=== PATIENT | male | born 1950 | race Caucasian/White ===

== ENCOUNTER → 2017-03-21 | Outpatient (CLI) | payer OTHER, BC ==
[2015-07-21 12:52] VITALS: BP 109/72
[~2017-03-21] MED LIST: ALPR0.5T PO; ASPI-482 PO; ASPI-612 PO; CIPR500T PO; FAMO-63 PO; FAMO40TA4 PO; FENT1PAT93 TP; GABA600T PO; IBUP1TAB84 PO; LAMO100T5 PO; LEVO750T31 PO; LIDO700A4 TP; LITH450T16 PO; LOVA40TA2 PO; MELO15TA23 PO; MEVACOR; MIRA25TA PO; MIRA50TA PO; MOME15CR13 TP; MORP30TA PO; MORP60TA PO; NITR0.4T SL; NORT25CA PO; OLAN20TA3 PO; OMEP40CA5 PO; OXYC-328 PO; OXYC1TAB9 PO; PHEN10TA32 PO; POTA20TA12 PO; PRED1DRO EACHEYE; SERT100T PO; SERT50TA PO; TAMS0.4C2 PO; TIZA4CAP3 PO; TIZA4TAB PO; ZOLP5TAB PO
--- NOTE | 2017-03-21 15:28 | RAD ---
EXAM: CT cervical spine without contrast. HISTORY: Neck pain after cervical fusion. TECHNIQUE: Computed tomography of the cervical spine was performed without intravenous contrast. COMPARISON: None. FINDINGS: There are changes of estimated posterior fusion from C5 through C7. On the right, pedicle screws are fixed by a vertical kaya at each level. The C5 screw appears to extend beyond the inferior cortex of the lateral mass and may also engage the superior aspect of the C6 lateral mass. There is mild periprosthetic lucency about the screw. The C6 and C7 screws are along the inferior aspects of the C6 and C7 lateral masses. On the left, the C7 pedicle screw appears superficial along the superior aspect of the T1 lateral mass and may lie in the C7-T1 facet joint. It does not clearly engage the bone. There is mild periprosthetic lucency about the C5 pedicle screw. This C5 and C6 pedicle screws are positioned very inferiorly within the lateral masses, adjacent to the inferior cortex. There appears to be uninstrumented anterior fusion at C5-6. No fractures are identified. There is moderate osteoarthritis at C1-2. There is slight anterolisthesis at C6-7. Degenerative disc disease is severe at C3-4 and [id number] at other levels. At C2-3, there is a small posterior disc bulge. There is mild uncovertebral osteoarthritis bilaterally. There is no significant stenosis. At C3-4, there is a moderate to large posterior disc-osteophyte complex. Uncovertebral osteoarthritis is severe on the right greater than left. Central canal stenosis is severe. Minimal anteroposterior central canal diameter is 5-6 mm. Foraminal stenosis is severe on the right and moderate to severe on the left. At C4-5, there is a moderate posterior disc-osteophyte complex. Uncovertebral osteoarthritis is moderate bilaterally. Facet osteoarthritis is moderate on the right in the left. Foraminal stenosis is moderate bilaterally. Central canal stenosis is moderate. At C5-6, there is a moderate to large posterior disc-osteophyte complex. Central canal stenosis is moderate to severe. Minimal anteroposterior central canal diameter is 7 mm. Uncovertebral osteoarthritis is moderate to severe on the left and moderate on the right. Foraminal stenosis is moderate on the right and moderate to severe on the left. At C6-7, there is a small posterior disc-osteophyte complex. Central canal stenosis appears mild. Uncovertebral osteoarthritis is mild bilaterally. IMPRESSION: 1. Instrumented posterior fusion from C5 through C7. The left C7 pedicle screw may not engage the bone and appears to be in the C7-T1 facet joint space. 2. There appears to be periprosthetic lucency about the C5 pedicle screws bilaterally. Correlate for loosening or infection. 3. Noninstrumented anterior fusion at C5-6. 4. Degenerative disc disease is severe at C3-4 and mild to moderate elsewhere. 5. Central canal stenosis is severe at C3-4, moderate to severe at C5-6, and moderate at C4-5. 6. Foraminal stenosis is to severe on the right at C3-4 and generally moderate elsewhere as above. *One or more of the following individualized dose reduction techniques were utilized for this examination: 1. Automated exposure control. 2. Adjustment of the mA and/or kV according to patient size. 3. Use of iterative reconstruction technique.
== END | disposition home or self-care (01) ==
LOC: CT 13:13
PROVIDERS: ATTEND Family Medicine
DX: M48.02 Spinal stenosis, cervical region (principal); M50.31 Other cervical disc degeneration, high cervical region; M47.892 Other spondylosis, cervical region
CPT/HCPCS: 72125

== ENCOUNTER 2018-09-05 00:33 | Inpatient (IN) | payer BC, MEDICARE ==
[~2018-09-05] VITALS: Ht 172.7 cm; Wt 107.7 kg
[~2018-09-05 00:33] MED LIST changes: -OXYC-328 PO; +OXYC-411 PO; +OXYC1TAB22 PO; -OXYC1TAB9 PO
[2018-09-05] MEDS ORDERED: ONDANSETRON PF 4 MG/2 ML VIAL. ONE (00:44)
[2018-09-05] MEDS ORDERED: ONDANSETRON PF 4 MG/2 ML VIAL. IV ONE (00:45)
[2018-09-05] MEDS ORDERED: MORPHINE SULFATE 4 MG/ML DISP.SYRIN. IV/SQ PRN (00:45)
[2018-09-05] MEDS ORDERED: ASPIRIN 81 MG TAB.CHEW ONE (00:45)
[2018-09-05] MEDS ORDERED: ASPIRIN 81 MG TAB.CHEW PO ONE (00:45)
[2018-09-05] MEDS: NITROGLYCERIN SUBLINGUAL 0.4 MG BOTTLE OF 25. SL PRN ×4 (00:50→05:27)
[2018-09-05 00:53] LABS: BASO # 0.1 x10^3/uL (0.0-0.2); BASO % 1 % (0-3); EOS # 0.1 x10^3/uL (0.0-0.7); EOS % 1 % (0-3); HEMOGLOBIN 14.1 g/dL (13.0-17.5); LYMPH # 2.5 x10^3/uL (1.0-4.8); LYMPH % 21 % (24-48); MEAN CORPUSCULAR HEMOGLOBIN 34 pg (25-35); MEAN CORPUSCULAR HGB CONC 34 g/dL (31-37); MEAN CORPUSCULAR VOLUME 99 fL (79-100); MONO # 0.9 x10^3/uL (0.0-1.1); MONO % 8 % (0-9); NEUT # 8.3 x10^3uL (1.8-7.7); NEUT % 70 % (31-73); PLATELET COUNT 318 x10^3/uL (140-400); RED BLOOD COUNT 4.14 x10^6/uL (4.30-5.70); RED CELL DISTRIBUTION WIDTH 16.1 % (11.5-14.5); WHITE BLOOD COUNT 11.8 x10^3/uL (4.0-11.0)
--- NOTE | 2018-09-05 00:55 | PHYS DOC ---
Past History Past Medical History: Angina, Arrhythmia, CAD, Hypertension, Other Additional Past Medical Histor: chronic back pain Past Surgical History: Pacemaker Additional Past Surgical Histo: cardiac stent Smoking: Cigarettes, Greater than 1 pack/day Alcohol Use: None Drug Use: None Adult General Chief Complaint Chief Complaint: CHEST PAIN HPI HPI Patient is a 68-year-old male presents with chest pain that started approximately 30 minutes prior to arrival. No relief with nitroglycerin however the nitroglycerin was 8 months past expiration date. No radiation of the discomfort, no respirophasic component, nothing seems to make the symptoms b marya or worse. Patient did not take his aspirin today. Pain is moderate to severe in intensity. He has a previous history of coronary disease receiving a stent approximately 5 years ago, hypertension, and is a pack and a half a day smoker.[] Review of Systems Review of Systems Constitutional: Denies fever or chills [] Eyes: Denies change in visual acuity, redness, or eye pain [] HENT: Denies nasal congestion or sore throat [] Respiratory: Denies cough or shortness of breath [] Cardiovascular: No additional information not addressed in HPI [] GI: Denies abdominal pain, nausea, vomiting, bloody stools or diarrhea [] : Denies dysuria or hematuria [] Musculoskeletal: Denies back pain or joint pain [] Integument: Denies rash or skin lesions [] Neurologic: Denies headache, focal weakness or sensory changes [] Endocrine: Denies polyuria or polydipsia [] All other systems were reviewed and found to be within normal limits, except as documented in this note. Current Medications Current Medications Current Medications Medications (Trade) Dose Ordered Sig/João Start Time Stop Time Status Last Admin Dose Admin Aspirin (Children'S Aspirin) 81 mg STK-MED ONCE 09/05/18 00:45 09/05/18 00:46 DC Morphine Sulfate (Morphine 4mg Syringe) 4 mg PRN Q15MIN PRN 09/05/18 00:45 09/06/18 00:44 UNV Nitroglycerin (Nitrostat) 0.4 mg PRN Q5MIN PRN 09/05/18 00:45 09/06/18 00:44 UNV 09/05/18 00:50 0.4 MG Ondansetron HCl (Zofran) 4 mg STK-MED ONCE 09/05/18 00:44 5/9/19 00:45 DC Allergies Allergies Allergies Coded Allergies Type Severity Reaction Last Updated Verified No Known Drug Allergies 07/10/14 No Physical Exam Physical Exam Constitutional: Well developed, well nourished, moderate discomfort, non-toxic appearance. [] HENT: Normocephalic, atraumatic, bilateral external ears normal, oropharynx moist, no oral exudates, nose normal. [] Eyes: PERRLA, EOMI, conjunctiva normal, no discharge. [] Neck: Normal range of motion, no tenderness, supple, no stridor. [] Cardiovascular:Heart rate regular rhythm, no murmur [] Lungs & Thorax: Bilateral breath sounds clear to auscultation [] Abdomen: Bowel sounds normal, soft, no tenderness, no masses, no pulsatile masses. [] Skin: Warm, clammy, no erythema, no rash. [] Back: No tenderness, no CVA tenderness. [] Extremities: No tenderness, no cyanosis, no clubbing, ROM intact, no edema. [] Neurologic: Alert and oriented X 3, normal motor function, normal sensory function, no focal deficits noted. [] Psychologic: Affect normal, judgement normal, mood normal. [] Current Patient Data Vital Signs Vital Signs Date Time Temp Pulse Resp B/P (MAP) Pulse Ox O2 Delivery O2 Flow Rate FiO2 09/05/18 00:50 60 103/52 09/05/18 00:36 24 96 Room Air EKG EKG EKG shows a sinus rhythm at 52 bpm, left axis, QTC of 404 ms, no ST elevations. Interpreted by me at 0043[] Radiology/Procedures Radiology/Procedures Chest x-ray shows an elevated right hemidiaphragm. No acute changes from previous[] Course & Med Decision Making Course & Med Decision Making Pertinent Labs and Imaging studies reviewed. (See chart for details) ED course: Patient arrived, was placed in bed, and tolerated exam well. He was given aspirin along with morphine as his blood pressure improved however his oxy gen saturation decreased to the low 90s percent so additional morphine was held. Due to his low blood pressure initially nitroglycerin was held however it was subsequently applied. Patient was additionally given IV NSAIDs for the discomfort. Due to patient's cardiac history, he was admitted for further evaluation. Discussed findings and plan with patient and family who voiced under standing. All questions were answered. He was admitted in improved condition. Medical decision makin-year-old male with a known history of coronary disease having chest discomfort similar to his previous need for cardiac stents. We will admit him for further evaluation and treatment. First set of cardiac enzymes are negative. He does not endorse any PE risk factors. There is no evidence of pneumonia or pneumothorax on his imaging. No evidence of esophageal rupture. No evidence of thoracic aortic dissection.[] Dragon Disclaimer Dragon Disclaimer This electronic medical record was generated, in whole or in part, using a voice recognition dictation system. Departure Departure: Impression: Primary Impression: Chest pain Disposition: ADMITTED INPATIENT Admitting Physician: Dilip Fleming Condition: IMPROVED Referrals: JAMIA VELAZCO MD (PCP) Problem Qualifiers Primary Impression: Chest pain Chest pain type: unspecified Qualified Codes: R07.9 - Chest pain, unspecified AYAKA ABDUL DO September 05, 2018 00:55
[2018-09-05 01:11] LABS: ALBUMIN 3.1 g/dL (3.4-5.0); CALCIUM 8.5 mg/dL (8.5-10.1); CREATININE 1.1 mg/dL (0.7-1.3); MAGNESIUM 1.9 mg/dL (1.8-2.4); POTASSIUM 3.6 mmol/L (3.5-5.1); TOTAL BILIRUBIN 0.3 mg/dL (0.2-1.0); TOTAL PROTEIN 6.2 g/dL (6.4-8.2)
[2018-09-05] MEDS ORDERED: NITROGLYCERIN OINT 1 GM PACKET. ONE (01:33)
[2018-09-05] MEDS ORDERED: IV NORMAL SALINE 1,000ML 1,000 ML IV SCH (01:58)
[2018-09-05] MEDS ORDERED: ONDANSETRON PF 4 MG/2 ML VIAL. IV PRN (02:00)
[2018-09-05] MEDS ORDERED: NITROGLYCERIN SUBLINGUAL 0.4 MG BOTTLE OF 25. SL PRN (02:00)
[2018-09-05] MEDS ORDERED: NITROGLYCERIN OINT 1 GM PACKET. TP ONE (02:00)
[2018-09-05] MEDS ORDERED: ACETAMINOPHEN 325 MG TABLET PO PRN (02:00)
[2018-09-05] MEDS ORDERED: KETOROLAC 15 MG/ML VIAL. IV ONE (02:00)
[2018-09-05 03:18] VITALS: BP 104/68
[2018-09-05 03:20] VITALS: BP 98/62
[2018-09-05 04:03] VITALS: BP 110/65
[2018-09-05 04:14] VITALS: BP 96/48
[2018-09-05 04:30] VITALS: BP 97/60
[2018-09-05] MEDS ORDERED: AMIT25TA PO (05:15)
[2018-09-05 05:52] VITALS: BP 100/60
--- NOTE | 2018-09-05 06:30 | EKG ---
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
--- NOTE | 2018-09-05 08:11 | RAD ---
Portable chest, 09/05/2018: HISTORY: Chest pain, pacemaker Comparison is made to a study from 06/29/2015. A left-sided transvenous pacemaker remains in place with 2 leads extending into the right heart. There appear to be spinal stimulator electrodes projected over the lower thoracic spinal canal. There is chronic elevation of the right hemidiaphragm with mild right basilar atelectasis. The left ventricle is prominent. No acute infiltrate is seen. There is no evidence of pleural fluid. Surgical implants are again noted in the lower cervical spine. IMPRESSION: 1. Chronic elevation of the right hemidiaphragm with mild right basilar atelectasis. 2. Mild cardiomegaly. Electronically signed by: Juan Ramon Navarro MD (09/05/2018 8:09 AM) [facility]
--- NOTE | 2018-09-05 08:47 | EKG ---
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
[2018-09-05] MEDS ORDERED: ENOXAPARIN ** NOTE DOSE ** SYRINGE SQ ONE (09:30)
--- NOTE | 2018-09-05 09:42 | PDOC2 ---
CONSULT Date of Admission DATE: 09/05/18 TIME: 08:59 Reason for Consult: chest pain Problem List Problems Medical Problems: (1) Chest pain Status: Acute History of Present Illness Patient is a 8 year old male who presented with chest pain starting at [place]. He took NTG at home without improvement, however his NTG was apparently . He was given NTG again in the ED as well as morphine at which point his blood pressure apparently decreased as well as Spo2. He reports no improvement until in ICU when he fell asleep. He is currently reporting pain at about 5/10 which he reports is better than previously. He reports radiation to his jaw. Initially he had associated diaphoresis and dyspnea which he currently denies. He reports pain consistent with his prior angina. He is wheelchair bound due to neuropathy so is unable to relate any change in functional capacity. He denies any baseline dyspnea, congestive symptoms, palpitations or lightheadedness. He does report chronic edema. Past Medical History Medical/surgical history- PAD PROCEDURE: 2012 Right leg runoff from the contralateral approach. Rotational atherectomy of a calcified left common iliac plaque with a lesion of approximately 75 percent. Placement of eV3 8 x 37 stent in the left common iliac artery from ipsilateral approach, which was post dilated with an 8 x 20 balloon. Left leg runoff revealed a highly calcified left common iliac lesion of about 75 percent. The lesion also appears to be eccentric. Successful rotational atherectomy of the left iliac lesion using a 2.0 CSI bur. Successful placement of an 8 x 37 mm stent in the left common iliac artery. Post dilatation of the stent using an 8 x 20 balloon. The stent used was an eV3 . Final angiographic results of residual stenosis of less than zero percent with a good 3 vessel runoff to the foot. CAD December 14, 2006: Left heart cardiac catheterization with angioplasty and stenting of the subtotally occluded obtuse marginal branch and distal circumflex artery. This was done at [facility]. Cardiac catheterization revealed a patent left main. Circumflex artery proximally was patent, then it had a tubular narrowing distally about 80 percent. The obtuse marginal branch first one was patent. The second one had a 99 percent diffuse disease proximally. The left anterior descending artery had a 20 percent proximal lesion and 20 percent mid lesion. The right coronary artery was a dominant vessel with 20 percent lesion. A 2.5 x 28 mm drug-eluting Cypher stent was placed in the proximal obtuse marginal branch and a 3 x 18 drug-eluting stent was placed in the distal left circumflex artery. This was also a Cypher stent. Cardiac cath 06/12/12 Left main. Left main coronary artery is noted to be patent. Distally it divides into the left circumflex artery and a left anterior descending artery. The left circumflex artery gives off a very high obtuse marginal branch. Then, it is noted to have 2 stents in it. One is in the distal circumflex artery, it is widely patent with a step-off and a step-down noted. The distal circumflex artery is noted to be patent beyond the stent. A large obtuse marginal branch has a previously placed stent which is also noted to be widely patent with a matt p-up and a step-down. No significant disease is noted in the distal part of the obtuse marginal branch. Left anterior descending artery. The left anterior descending artery shows heavy calcification proximally. In the mid area, there is a tubular narrowing of about 30 percent to 40 percent. Then right after the origin of the diagonal branch there is a focal area in the mid part of the left anterior descending artery which appears to be about 60 percent. A fractional flow reserve across this area was noted to be negative. Right coronary artery. The right coronary artery is the dominant vessel. The right coronary artery arises normally from the right coronary sinus and the right coronary artery proximally it is patent. In its mid area, there is an abrupt change in the lumen diameter with distal area showing about 40 percent lesion. The posterolateral and posterior descending arterial branches are noted to be patent. Left ventriculogram. The left ventriculogram reveals normal wall motion and normal left ventricular function, ejection fraction of 60 percent. No evidence of any significant mitral regurgitation is noted. Fractional flow reserve measured across the mid left anterior descending artery changed from 0.92 to 0.82 with maximum hyperemia. echo 04/11/12 Technically difficult study with poor endocardial definition, cannot assess for regional wall motion abnormalities. Left ventricular systolic function is within normal limits. LVEF 60% No significant valvular abnormalities. CHB s/p PPM carotid stenosis, hypotension, pneumonia, GERD, BPH, urinary retention, UTIs, neurogenic bladder (self cath). Cervical spine stenosis, s/p surgery, wheelchair bound due to neuropathy, arthritis, chronic pain, spinal stimulator implanted, anxiety, depression Family History non contributory Social History current smoker Current Medications Current Medications Aspirin (Children'S Aspirin) 324 mg 1X ONCE PO Last administered on 09/05/18at 00:46; Start 09/05/18 at 00:45; Stop 09/05/18 at 00:55; Status DC Nitroglycerin (Nitrostat) 0.4 mg PRN Q5MIN PRN SL CP RATING > 1/10 Last administered on 09/05/18at 05:27; Start 09/05/18 at 00:45; Stop 09/06/18 at 00:44 Morphine Sulfate (Morphine 4mg Syringe) 4 mg PRN Q15MIN PRN IV/SQ PAIN GREATER THAN 3/10 Last administered on 09/05/18at 00:54; Start 09/05/18 at 00:45; Stop 09/06/18 at 00:44 Ondansetron HCl (Zofran) 4 mg 1X ONCE IV Last administered on 09/05/18at 00:47; Start 09/05/18 at 00:45; Stop 09/05/18 at 00:55; Status DC Ondansetron HCl (Zofran) 4 mg STK-MED ONCE .ROUTE ; Start 09/05/18 at 00:44; Stop 09/05/18 at 00:45; Status DC Aspirin (Children'S Aspirin) 81 mg STK-MED ONCE .ROUTE ; Start 09/05/18 at 00:45; Stop 09/05/18 at 00:46; Status DC Nitroglycerin (Nitro-Bid Oint) 1 inch STK-MED ONCE .ROUTE ; Start 09/05/18 at 01:33; Stop 09/05/18 at 01:34; Status DC Nitroglycerin (Nitro-Bid Oint) 1 inch 1X ONCE TP Last administered on 09/05/18at 01:59; Start 09/05/18 at 02:00; Stop 09/05/18 at 02:01; Status DC Ketorolac Tromethamine (Toradol 15mg Vial) 15 mg 1X ONCE IV Last administered on 09/05/18at 01:59; Start 09/05/18 at 02:00; Stop 09/05/18 at 02:01; Status DC Ondansetron HCl (Zofran) 4 mg PRN Q4HRS PRN IV NAUSEA/VOMITING; Start 09/05/18 at 02:00; Stop 09/06/18 at 01:59 Fentanyl Citrate (Fentanyl 2ml Vial) 50 mcg PRN Q1HR PRN IV PAIN Last administered on 09/05/18at 04:42; Start 09/05/18 at 02:00; Stop 09/06/18 at 01:59 Sodium Chloride 1,000 ml @ 125 mls/hr Q8H IV Last administered on 09/05/18at 03:30; Start 09/05/18 at 01:58; Stop 09/06/18 at 01:57 Acetaminophen (Tylenol) 650 mg PRN Q4HRS PRN PO FEVER; Start 09/05/18 at 02:00; Stop 09/06/18 at 01:59 Nitroglycerin (Nitrostat) 0.4 mg PRN Q5MIN PRN SL CHEST PAIN; Start 09/05/18 at 02:00; Stop 09/06/18 at 01:59 Active Scripts Active Ambien (Zolpidem Tartrate) 5 Mg Tablet 5 Mg PO PRN QHS PRN Myrbetriq (Mirabegron) 25 Mg Tab.er.24h 50 Mg PO DAILY Lidoderm (Lidocaine) 700 Mg Adh..patch 1 Patch TP DAILY Aspirin Ec (Aspirin) 81 Mg Tablet.dr 81 Mg PO DAILY Reported Amitriptyline Hcl 25 Mg Tablet 25 Mg PO DAILY Nortriptyline Hcl 25 Mg Capsule 1 Cap PO QHS LAST DOSE GIVEN: DATE: YESTERDAY TIME: PM NEXT DOSE DUE: DATE: TODAY TIME: PM Tizanidine Hcl (Tizanidine HCl) 4 Mg Tablet 8 Mg PO Q8HRS LAST DOSE GIVEN: DATE: TODAY TIME: AM NEXT DOSE DUE: DATE: TODAY TIME: AFTERNOON Nitrostat (Nitroglycerin) 0.4 Mg Tab.subl 0.4 Mg SL PRN Q5MIN PRN X 3 DOSES IF NEEDED LAST DOSE GIVEN: DATE: TIME: NEXT DOSE DUE: DATE: TODAY TIME: IF NEEDED Oxycodone-Acetaminophen 10-325 (Oxycodone Hcl/Acetaminophen) 1 Each Tablet 1 Tab PO Q6HRS PRN LAST DOSE GIVEN: DATE: TIME: NEXT DOSE DUE: DATE: TODAY TIME: WHEN NEEDED Meloxicam 15 Mg Tablet 15 Mg PO DAILY LAST DOSE GIVEN: DATE: TODAY TIME: AM NEXT DOSE DUE: DATE: TOMORROW TIME: AM Neurontin (Gabapentin) 600 Mg Tablet 1 Tab PO TID Indication: Neuropathy LAST DOSE GIVEN: DATE: TODAY TIME: AM NEXT DOSE DUE: DATE: TODAY TIME: AFTERNOON Allergies: Coded Allergies: No Known Drug Allergies (Unverified , 07/10/14) Review of System as per HPI General: Alert, Oriented X3, Cooperative, No acute distress HEENT: Atraumatic, EOMI, Mucous membr. moist/pink Lungs: Other (coarse with decreased bases) Heart: Normal S1, Normal S2, Other (heart sounds distant, no obvious murmurs, no gallops, clicks or rubs. ) Abdomen: Normal bowel sounds, Soft Extremities: No cyanosis, Other (+2 edema) Neuro: Normal speech, Strength at 5/5 X4 ext Psych/Mental Status: Mood NL VITALS Vital Signs Date Time Temp Pulse Resp B/P (MAP) Pulse Ox O2 Delivery O2 Flow Rate FiO2 09/05/18 07:42 Nasal Cannula 2.0 09/05/18 05:52 76 19 100/60 (73) 96 09/05/18 03:18 97.3 Labs Laboratory Tests Test 09/05/18 00:40 09/05/18 05:45 White Blood Count 11.8 x10^3/uL (4.0-11.0) Red Blood Count 4.14 x10^6/uL (4.30-5.70) Hemoglobin 14.1 g/dL (13.0-17.5) Hematocrit 41.0 % (39.0-53.0) Mean Corpuscular Volume 99 fL (79-100) Mean Corpuscular Hemoglobin 34 pg (25-35) Mean Corpuscular Hemoglobin Concent 34 g/dL (31-37) Red Cell Distribution Width 16.1 % (11.5-14.5) Platelet Count 318 x10^3/uL (140-400) Neutrophils (%) (Auto) 70 % (31-73) Lymphocytes (%) (Auto) 21 % (24-48) Monocytes (%) (Auto) 8 % (0-9) Eosinophils (%) (Auto) 1 % (0-3) Basophils (%) (Auto) 1 % (0-3) Neutrophils # (Auto) 8.3 x10^3uL (1.8-7.7) Lymphocytes # (Auto) 2.5 x10^3/uL (1.0-4.8) Monocytes # (Auto) 0.9 x10^3/uL (0.0-1.1) Eosinophils # (Auto) 0.1 x10^3/uL (0.0-0.7) Basophils # (Auto) 0.1 x10^3/uL (0.0-0.2) Prothrombin Time 10.6 SEC (9.4-11.4) Prothromb Time International Ratio 1.1 (0.9-1.1) Sodium Level 141 mmol/L (136-145) Potassium Level 3.6 mmol/L (3.5-5.1) Chloride Level 103 mmol/L (98-107) Carbon Dioxide Level 24 mmol/L (21-32) Anion Gap 14 (6-14) Blood Urea Nitrogen 16 mg/dL (8-26) Creatinine 1.1 mg/dL (0.7-1.3) Estimated GFR (Cockcroft-Gault) 67.0 BUN/Creatinine Ratio 15 (6-20) Glucose Level 120 mg/dL (70-99) Calcium Level 8.5 mg/dL (8.5-10.1) Magnesium Level 1.9 mg/dL (1.8-2.4) Total Bilirubin 0.3 mg/dL (0.2-1.0) Aspartate Amino Transf (AST/SGOT) 8 U/L (15-37) Alanine Aminotransferase (ALT/SGPT) 10 U/L (16-63) Alkaline Phosphatase 88 U/L (46-116) Troponin I Quantitative < 0.017 ng/mL (0-0.055) 0.443 ng/mL (0-0.055) JT-Keh-O-Type Natriuretic Peptide 437 pg/mL (0-124) Total Protein 6.2 g/dL (6.4-8.2) Albumin 3.1 g/dL (3.4-5.0) Albumin/Globulin Ratio 1.0 (1.0-1.7) Lipase 137 U/L (73-393) Images CXR - IMPRESSION: 1. Chronic elevation of the right hemidiaphragm with mild right basilar atelectasis. 2. Mild cardiomegaly. EKG - sinus with PACs, RBBB, non specific st/t abn Assessment/Plan 1. NSTEMI with continued anginal symptoms - lovenox, IVF, transfer for cardiac cath. Currently borderline hypotension. Add NTG and beta libby when pressure improves. 2. CAD with prior stenting as described above 3. PAD as described above 4. Hypotension - IVF, monitor 5. Hyperlipidemia - check lipids, add statin 6. CHB s/p PPM - check device. 7. spinal stenosis with failed surgery, spinal stim and chronic neuropathy. wheel chair bound due to pain. 8. tobaccoism - cessation encouraged. Transfer to [facility] for cardiac cath. will plan for echo there and pacemaker interrogation. [employer] September 05, 2018 09:42
== END 2018-09-05 10:02 | disposition short-term general hospital (02) | DRG 281 ==
LOC: ER 00:33 → 1 SOUTH 01:41 → UNDOADMOB 01:41 → ICU 01:41 → OBSVTOIN 02:57
PROVIDERS: ADMIT Internal Medicine; ATTEND Internal Medicine
DX: I21.4 Non-ST elevation (NSTEMI) myocardial infarction (principal); J98.11 Atelectasis; E78.5 Hyperlipidemia, unspecified; F17.200 Nicotine dependence, unspecified, uncomplicated; G62.9 Polyneuropathy, unspecified; I10 Essential (primary) hypertension; F32.9 Major depressive disorder, single episode, unspecified; F41.9 Anxiety disorder, unspecified; G89.29 Other chronic pain; M19.90 Unspecified osteoarthritis, unspecified site; I25.10 Atherosclerotic heart disease of native coronary artery without angina pectoris; K21.9 Gastro-esophageal reflux disease without esophagitis; M48.00 Spinal stenosis, site unspecified; N31.9 Neuromuscular dysfunction of bladder, unspecified; N40.1 Benign prostatic hyperplasia with lower urinary tract symptoms; Z95.5 Presence of coronary angioplasty implant and graft; Z99.3 Dependence on wheelchair
CPT/HCPCS: 36415; 71045; 80053; 83690; 83735; 83880; 84484; 85025; 85610; 87641; 93005; 96374; 96375; 99406; G0379; J1885; J2270; J2405; J3010; 99285-25; J7030

== ENCOUNTER 2018-09-15 09:58 | Emergency (ER) | payer BC, MEDICARE ==
[~2018-09-15] VITALS: Ht 172.7 cm; Wt 109.3 kg
[~2018-09-15 09:58] MED LIST changes: +AMIT25TA PO
--- NOTE | 2018-09-15 10:22 | PHYS DOC ---
Past History Past Medical History: Angina, Arrhythmia, CAD, Hypertension, Other Additional Past Medical Histor: chronic back pain Past Surgical History: Pacemaker Additional Past Surgical Histo: cardiac stent Smoking: Cigarettes, Greater than 1 pack/day Alcohol Use: None Drug Use: None Adult General Chief Complaint Chief Complaint: HYPOTENSION HPI HPI Patient is a 68-year-old male who presents with low blood pressure. Patient had his taking his blood pressure this morning, as per their usual routine, when she noted that was in the 60s systolic. He normally runs 110s systolic. It stayed low over several blood pressure measurements. Patient noted more shortness of breath than usual when walking to the car this morning. Denies any chest pain. Patient is approximately a week and a half out from having a non- STEMI and new cardiac stents placed. Patient is uncertain as to which if any medications were adjusted during this recent hospitalization. Nothing seems to make the symptoms worse regarding his blood pressure. The shortness of breath is worse with exertion, better with rest.[] Review of Systems Review of Systems Constitutional: Denies fever or chills [] Eyes: Denies change in visual acuity, redness, or eye pain [] HENT: Denies nasal congestion or sore throat [] Respiratory: Denies cough, see history of present illness[] Cardiovascular: No chest pain or palpitations[] GI: Denies abdominal pain, nausea, vomiting, bloody stools or diarrhea [] : Denies dysuria or hematuria [] Musculoskeletal: Denies back pain or joint pain [] Integument: Denies rash or skin lesions [] Neurologic: Denies headache, focal weakness or sensory changes [] Endocrine: Denies polyuria or polydipsia [] All other systems were reviewed and found to be within normal limits, except as documented in this note. Allergies Allergies Allergies Coded Allergies Type Severity Reaction Last Updated Verified No Known Drug Allergies 07/10/14 No Physical Exam Physical Exam Constitutional: Well developed, well nourished, no acute distress, non-toxic appearance. [] HENT: Normocephalic, atraumatic, bilateral external ears normal, oropharynx moist, no oral exudates, nose normal. [] Eyes: PERRLA, EOMI, conjunctiva normal, no discharge. [] Neck: Normal range of motion, no tenderness, supple, no stridor. [] Cardiovascular:Heart rate regular rhythm, no murmur [] Lungs & Thorax: Bilateral breath sounds clear to auscultation [] Abdomen: Bowel sounds normal, soft, no tenderness, no masses, no pulsatile masses. [] Skin: Warm, dry, no erythema, no rash. [] Back: No tenderness, no CVA tenderness. [] Extremities: No tenderness, no cyanosis, no clubbing, ROM intact, no edema. [] Neurologic: Alert and oriented X 3, normal motor function, normal sensory function, no focal deficits noted. [] Psychologic: Affect normal, judgement normal, mood normal. [] EKG EKG EKG shows a sinus rhythm at 100 bpm, left axis, QTC of 468 ms, no ST elevations. Interpreted by me at 1006[] Radiology/Procedures Radiology/Procedures PROCEDURE: PORTABLE CHEST 1V EXAM: CHEST 1 VIEW History: Low blood pressure COMPARISON: 09/05/2018 TECHNIQUE: Single portable radiograph of the chest FINDINGS: Mild cardiomegaly is unchanged. Mild elevation of the right hemidiaphragm. The costophrenic sulci are clear and well demarcated. Left-sided cardiac pacer is unchanged. IMPRESSION: No acute cardiopulmonary findings. [] Course & Med Decision Making Course & Med Decision Making Pertinent Labs and Imaging studies reviewed. (See chart for details) ED course and medical decision making: Patient arrived, was placed in bed, and tolerated exam well. His blood pressure was noted to be low, it transiently improved to the 90 systolic prior to any interventions. However it decreased aga in, IV fluids were started and the blood pressure remained in the 80s systolic. His elevated white count is noted. Given his recent hospitalization this may be due to an infectious source. There is no pulmonary evidence of an infection, and no evidence of a skin infection. Urine is pending at the time of this dictation. BNP is also noted to be elevated along with his troponin being elevated. His troponin may be residual given his recent non-STEMI. There is no evidence of a pulmonary component of the elevated BNP/congestive heart failure. BNP is noted to be 1700 today when it was in the 400s with his recent admission 10 days ago. Reluctant to give diuretics given his low blood pressure. Consultation was made with the hospitalist service who requested the patient be [facility] given its greater resources including cardiac catheterization lab as well as infectious disease specialists if necessary. Discussed findings and plan with patient and his who voiced understanding. All questions were answered. 1148: Results of the urinalysis returned showing too numerous to count white cells. Patient is being given antibiotics that should cover for urinary tract infection.[] Dragon Disclaimer Dragon Disclaimer This electronic medical record was generated, in whole or in part, using a voice recognition dictation system. Departure Departure: Impression: Primary Impression: Hypotension Additional Impressions: Elevated troponin Leukocytosis Sepsis secondary to UTI Disposition: 05 TRANSFER OTHER Condition: IMPROVED Referrals: JAMIA VELAZCO MD (PCP) Problem Qualifiers Primary Impression: Hypotension Hypotension type: unspecified hypotension type Qualified Codes: I95.9 - Hypotension, unspecified Additional Impressions: Leukocytosis Leukocytosis type: unspecified Qualified Codes: D72.829 - Elevated white blood cell count, unspecified AYAKA ABDUL DO September 15, 2018 10:22
[2018-09-15 10:23] LABS: BASO # 0.2 x10^3/uL (0.0-0.2); BASO % 1 % (0-3); EOS # 0.1 x10^3/uL (0.0-0.7); EOS % 1 % (0-3); HEMATOCRIT 40.5 % (39.0-53.0); HEMOGLOBIN 13.6 g/dL (13.0-17.5); LYMPH # 1.8 x10^3/uL (1.0-4.8); LYMPH % 11 % (24-48); MEAN CORPUSCULAR HEMOGLOBIN 33 pg (25-35); MEAN CORPUSCULAR HGB CONC 34 g/dL (31-37); MEAN CORPUSCULAR VOLUME 99 fL (79-100); MONO # 0.9 x10^3/uL (0.0-1.1); MONO % 6 % (0-9); NEUT % 81 % (31-73); PLATELET COUNT 381 x10^3/uL (140-400); RED BLOOD COUNT 4.08 x10^6/uL (4.30-5.70); RED CELL DISTRIBUTION WIDTH 16.1 % (11.5-14.5)
[2018-09-15] MEDS ORDERED: IV NORMAL SALINE 500ML 500 ML IV ONE (10:30)
--- NOTE | 2018-09-15 10:33 | RAD ---
EXAM: CHEST 1 VIEW History: Low blood pressure COMPARISON: 09/05/2018 TECHNIQUE: Single portable radiograph of the chest FINDINGS: Mild cardiomegaly is unchanged. Mild elevation of the right hemidiaphragm. The costophrenic sulci are clear and well demarcated. Left-sided cardiac pacer is unchanged. IMPRESSION: No acute cardiopulmonary findings. Electronically signed by: Derian Morin MD (09/15/2018 10:31 AM) [facility]
[2018-09-15 10:39] LABS: ALBUMIN 3.2 g/dL (3.4-5.0); ALBUMIN/GLOBULIN RATIO 0.8 (1.0-1.7); CALCIUM 8.9 mg/dL (8.5-10.1); CREATININE 1.2 mg/dL (0.7-1.3); GFR 60.6; MAGNESIUM 2.1 mg/dL (1.8-2.4); POTASSIUM 4.2 mmol/L (3.5-5.1); TOTAL BILIRUBIN 0.5 mg/dL (0.2-1.0)
[2018-09-15] MEDS ORDERED: VANCOMYCIN PER PHARMACY MC STA (10:53)
[2018-09-15] MEDS ORDERED: IV NORMAL SALINE 1,000ML 2,040 ML IV SCH (11:00)
[2018-09-15] MEDS ORDERED: PIPERACILLIN/TAZOBACTAM 3.375 GM in IV NORMAL SALINE 50ML 50 ML IV ONE (11:00)
[2018-09-15] MEDS ORDERED: IV NORMAL SALINE 50ML 50 ML ONE (11:29)
[2018-09-15] MEDS ORDERED: IV NORMAL SALINE 500ML 500 ML ONE (11:29)
[2018-09-15] MEDS ORDERED: PIPERACILLIN/TAZOBACTAM 3.375 GM VIAL IV ONE (11:29)
[2018-09-15] MEDS ORDERED: VANCOMYCIN 2 GM in IV NORMAL SALINE 500ML 500 ML IV ONE (11:30)
[2018-09-15 11:36] LABS: % ATYL 1 % (0-0); % BANDS 2 % (0-9); % LYMPHS 17 % (24-48); % MONOS 4 % (0-10); % SEGS 76 % (35-66); PLT ESTIMATE ADEQUATE (ADEQUATE)
[2018-09-15 11:43] LABS: BACTERIA,URINE MANY /HPF (0-FEW); BILIRUBIN,URINE NEG (NEG); CLARITY,URINE CLOUDY; COLOR,URINE YELLOW; GLUCOSE,URINE NEG (NEG); NITRITE,URINE POS (NEG); SQUAMOUS EPITHELIAL CELL,UR FEW /LPF; UROBILINOGEN,URINE 0.2 mg/dL (0.2 mg/dL); WBC,URINE TNTC /HPF (0-4)
[2018-09-15 11:44] LABS: AMPHETAMINE/METHAMPHETAMINE NEG (NEG); BARBITURATES NEG (NEG); BENZODIAZEPINES NEG (NEG); CANNABINOIDS NEG (NEG); COCAINE NEG (NEG); METHADONE NEG (NEG); OPIATES POS (NEG); PHENCYCLIDINE NEG (NEG)
[2018-09-15 12:25] VITALS: BP 90/46
--- NOTE | 2018-09-15 15:37 | EKG ---
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
== END 2018-09-15 12:48 | disposition short-term general hospital (02) ==
LOC: ER 09:58
DX: A41.9 Sepsis, unspecified organism (principal); I95.9 Hypotension, unspecified; D72.829 Elevated white blood cell count, unspecified; N39.0 Urinary tract infection, site not specified; R79.89 Other specified abnormal findings of blood chemistry; I51.7 Cardiomegaly; I10 Essential (primary) hypertension; I25.10 Atherosclerotic heart disease of native coronary artery without angina pectoris; G89.29 Other chronic pain; M54.89 Other dorsalgia; F17.210 Nicotine dependence, cigarettes, uncomplicated; Z95.0 Presence of cardiac pacemaker
CPT/HCPCS: 36415; 71045; 80053; 80307; 81001; 83605; 83735; 83880; 84484; 85007; 85025; 85610; 87040; 87086; 93005; 96365; 96368; 96375; 99285; J2543; J3010; J3370; J7040; 87186; J7030

== ENCOUNTER 2019-07-18 16:26 | Inpatient (IN) | payer BC, MEDICARE ==
[~2019-07-18] VITALS: Ht 172.7 cm; Wt 97.2 kg
[~2019-07-18 16:26] MED LIST changes: -MOME15CR13 TP; +MOME15CR7 TP; -MORP60TA PO; +MORP60TA60 PO; -NITR0.4T SL; +NITR0.4T24 SL; +OMEP40CA45 PO; -OMEP40CA5 PO; -TIZA4TAB PO; +TIZA4TAB2 PO
[2019-07-18] MEDS ORDERED: IV NORMAL SALINE 1,000ML 1,000 ML IV SCH (16:45)
--- NOTE | 2019-07-18 17:19 | RAD ---
INDICATION: Fever and hypotension. COMPARISON: One day prior FINDINGS: Single view of chest obtained. Elevated right hemidiaphragm. Pacemaker is again identified. Cardiac silhouette similar to prior. Some limitation at the left lung base secondary to overlying cardiac silhouette obscuring but no definite new region of airspace consolidation. Postoperative changes lower cervical spine with pedicle screws and rods. IMPRESSION: * Similar appearance compared to prior with redemonstration of elevation of the right hemidiaphragm without definite new region of focal airspace consolidation. Electronically signed by: Lan Tucker MD (07/18/2019 5:16 PM) [id number]
[2019-07-18 17:25] LABS: BASO % 0 % (0-3); EOS % 0 % (0-3); HEMATOCRIT 43.6 % (39.0-53.0); HEMOGLOBIN 14.9 g/dL (13.0-17.5); LYMPH # 0.4 x10^3/uL (1.0-4.8); LYMPH % 5 % (24-48); MEAN CORPUSCULAR HEMOGLOBIN 34 pg (25-35); MEAN CORPUSCULAR HGB CONC 34 g/dL (31-37); MEAN CORPUSCULAR VOLUME 99 fL (79-100); MONO # 0.8 x10^3/uL (0.0-1.1); MONO % 8 % (0-9); NEUT # 8.1 x10^3uL (1.8-7.7); NEUT % 87 % (31-73); PLATELET COUNT 187 x10^3/uL (140-400); RED BLOOD COUNT 4.39 x10^6/uL (4.30-5.70); RED CELL DISTRIBUTION WIDTH 15.1 % (11.5-14.5); WHITE BLOOD COUNT 9.4 x10^3/uL (4.0-11.0)
[2019-07-18] MEDS ORDERED: IV NORMAL SALINE 1,000ML 1,000 ML IV ONE (17:30)
[2019-07-18 17:33] LABS: INFLUENZA A PATIENT NEGATIVE (NEGATIVE); INFLUENZA B PATIENT NEGATIVE (NEGATIVE)
--- NOTE | 2019-07-18 17:35 | PHYS DOC ---
Past History Past Medical History: Angina, Arrhythmia, CAD, Hypertension, Other Additional Past Medical Histor: chronic back pain (SELMA AMOS Jr., DO) Past Surgical History: Pacemaker Additional Past Surgical Histo: cardiac stent (SELMA AMOS Jr., DO) Smoking: Cigarettes, Greater than 1 pack/day Alcohol Use: None Drug Use: None (SELMA AMOS Jr., DO) Adult General Chief Complaint Chief Complaint: MULTIPLE COMPLAINTS HPI HPI Patient is a 69-year-old male who presents with complaint of fever, generalized weakness and just not feeling well. Patient denies any cough or shortness of breath. Patient denies any abdominal pain, vomiting or diarrhea. He does complain of some body aches. Patient states that he was running a fever of 104 last night. He denies headache or neck pain.[] (SELMA AMOS Jr., DO) Review of Systems Review of Systems Constitutional: Complains of fever and chills [] Respiratory: Denies cough or shortness of breath [] Cardiovascular: No additional information not addressed in HPI [] GI: Denies abdominal pain, nausea, vomiting, bloody stools or diarrhea [] Integument: Denies rash or skin lesions [] Neurologic: Denies headache, focal weakness or sensory changes [] All other systems were reviewed and found to be within normal limits, except as documented in this note. (SELMA AMOS Jr., DO) Current Medications Current Medications Current Medications Medications (Trade) Dose Ordered Sig/João Start Time Stop Time Status Last Admin Dose Admin Sodium Chloride 1,000 ml @ 1,000 mls/hr 1X ONCE 07/18/19 17:30 07/18/19 18:29 UNV (SELMA AMOS Jr., DO) Allergies Allergies Allergies Coded Allergies Type Severity Reaction Last Updated Verified No Known Drug Allergies 07/10/14 No (SELMA AMOS Jr., DO) Physical Exam Physical Exam Constitutional: Well developed, well nourished, no acute distress, non-toxic appearance. [] HENT: Normocephalic, atraumatic, bilateral external ears normal, oropharynx dry, no oral exudates, nose normal. [] Eyes: PERRLA, EOMI, conjunctiva normal, no discharge. [] Neck: Normal range of motion, no tenderness, supple, no stridor. [] Cardiovascular: Regular rate and rhythm[] Lungs & Thorax: Bilateral breath sounds clear to auscultation [] Abdomen: Bowel sounds normal, soft, no tenderness. [] Skin: Cool and diaphoretic, no erythema, no rash. [] Extremities: No tenderness, no cyanosis, no clubbing, ROM intact. [] Neurologic: Alert and oriented X 3, no focal deficits noted. [] (SELMA AMOS Jr., DO) Current Patient Data Lab Results Laboratory Tests Test 07/18/19 16:55 White Blood Count 9.4 x10^3/uL (4.0-11.0) Red Blood Count 4.39 x10^6/uL (4.30-5.70) Hemoglobin 14.9 g/dL (13.0-17.5) Hematocrit 43.6 % (39.0-53.0) Mean Corpuscular Volume 99 fL (79-100) Mean Corpuscular Hemoglobin 34 pg (25-35) Mean Corpuscular Hemoglobin Concent 34 g/dL (31-37) Red Cell Distribution Width 15.1 % (11.5-14.5) H Platelet Count 187 x10^3/uL (140-400) Neutrophils (%) (Auto) 87 % (31-73) H Lymphocytes (%) (Auto) 5 % (24-48) L Monocytes (%) (Auto) 8 % (0-9) Eosinophils (%) (Auto) 0 % (0-3) Basophils (%) (Auto) 0 % (0-3) Neutrophils # (Auto) 8.1 x10^3uL (1.8-7.7) H Lymphocytes # (Auto) 0.4 x10^3/uL (1.0-4.8) L Monocytes # (Auto) 0.8 x10^3/uL (0.0-1.1) Eosinophils # (Auto) 0.0 x10^3/uL (0.0-0.7) Basophils # (Auto) 0.0 x10^3/uL (0.0-0.2) (SELMA AMOS Jr. DO) EKG EKG [] (SELMA AMOS Jr., DO) Radiology/Procedures Radiology/Procedures [] (SELMA AMOS Jr., DO) Course & Med Decision Making Course & Med Decision Making Pertinent Labs and Imaging studies reviewed. (See chart for details) [] (SELMA AMOS Jr. DO) Course & Med Decision Making Assumed care at shift change. Disposition pending troponin Troponin negative. Flu negative Chest Xray negative. UA -- added + Nitrates + LE Treated with Rocephin and IV Fluids. Blood pressure 95 systolic. Patient admitted to hospital (MI HALEY DO) Dragon Disclaimer Dragon Disclaimer This electronic medical record was generated, in whole or in part, using a voice recognition dictation system. (SELMA AMOS Jr. DO) Departure Departure: Impression: Primary Impression: UTI (urinary tract infection) Disposition: ADMITTED INPATIENT Admitting Physician: Dilip Fleming (MI HALEY DO) Condition: STABLE Referrals: JAMIA VELAZCO MD (PCP) SELMA AMOS Jr., DO Jul 18, 2019 17:35 MI HALEY DO Jul 18, 2019 19:21
[2019-07-18 17:36] LABS: CALCIUM 8.6 mg/dL (8.5-10.1); GFR 74.5; POTASSIUM 3.8 mmol/L (3.5-5.1)
[2019-07-18 17:41] LABS: ALBUMIN 2.6 g/dL (3.4-5.0); DIRECT BILIRUBIN 0.1 mg/dL (0.0-0.2); TOTAL BILIRUBIN 0.4 mg/dL (0.2-1.0); TOTAL PROTEIN 6.5 g/dL (6.4-8.2)
[2019-07-18 19:03] LABS: BACTERIA,URINE MOD /HPF (0-FEW); BILIRUBIN,URINE NEG (NEG); CLARITY,URINE HAZY; COLOR,URINE YELLOW; GLUCOSE,URINE NEG (NEG); NITRITE,URINE POS (NEG); RBC,URINE OCC /HPF (0-2)
[2019-07-18 19:04] LABS: SQUAMOUS EPITHELIAL CELL,UR OCC /LPF
[2019-07-18] MEDS ORDERED: cefTRIAXone SODIUM 1 GM VIAL ONE (19:23)
[2019-07-18] MEDS ORDERED: IV NORMAL SALINE 50ML 50 ML ONE (19:23)
[2019-07-18] MEDS ORDERED: ONDANSETRON PF 4 MG/2 ML VIAL. IVP PRN (19:30)
[2019-07-18] MEDS ORDERED: ACETAMINOPHEN 325 MG TABLET PO PRN (19:30)
[2019-07-18] MEDS ORDERED: HYDROcodone/APAP 5/325MG 1 TAB TABLET PO ONE (20:30)
[2019-07-18 22:13] VITALS: BP 107/64
--- NOTE | 2019-07-18 22:15 | NUR ---
ADMISSION: The patient, NOAH LANZA, 69 y/o, M admitted by ARASELI MADISON MD, was given written information regarding hospital policies, unit procedures and contact persons. Pt arrived to room 107 via rney, accompanied by [facility] and nursing sup. Transferred x3 assist from gurney to bed, able to turn self in bed. Pt here for c/o fatigue and fever last night. A/Ox4, WC bound. Currently afebrile. Dx: UTI. Received IV Rocephin 1gm while in ER. Pt normally self-caths at home r/t BPH and spinal cord injury. Aparicio cath placed in ED per order, draining cloudy straw-colored urine. Lives at home with his who is his caregiver. PMH and home meds reviewed. Requesting pain meds for chronic back pain. Dr. Madison notified of pt arrival and status, orders received. Discussed POC with pt, V/U. Call light in reach. Valuables were checked and logged.
[2019-07-18] MEDS ORDERED: GABA800T5 PO (22:33)
[2019-07-18] MEDS ORDERED: TICA90TA PO (22:33)
[2019-07-18] MEDS: TICAGRELOR 90 MG TABLET. PO SCH (23:00)
[2019-07-18] MEDS ORDERED: NITROGLYCERIN SUBLINGUAL 0.4 MG BOTTLE OF 25. SL PRN (23:00)
[2019-07-18] MEDS: oxyCODONE/APAP 10/325 1 TAB TABLET PO PRN (23:41)
[2019-07-18] MEDS: tiZANidine 4 MG TABLET. PO SCH (23:41)
[2019-07-18] MEDS: IV NORMAL SALINE 1,000ML 1,000 ML IV SCH (23:41)
[2019-07-18] MEDS: GABAPENTIN 400 MG CAPSULE. PO SCH (23:41)
[2019-07-18] MEDS: NORTRIPTYLINE 25 MG CAPSULE PO SCH (23:41)
--- NOTE | 2019-07-19 00:53 | EKG ---
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
[2019-07-19 02:38] VITALS: BP 111/62
[2019-07-19] MEDS: oxyCODONE/APAP 10/325 1 TAB TABLET PO PRN ×2 (06:06→20:34)
[2019-07-19] MEDS: tiZANidine 4 MG TABLET. PO SCH ×3 (06:06→20:33)
[2019-07-19 06:13] VITALS: BP 102/54
[2019-07-19] MEDS: ASPIRIN ENTERIC COATED 81 MG TABLET.DR. PO SCH (08:18)
[2019-07-19] MEDS: TICAGRELOR 90 MG TABLET. PO SCH (08:18)
[2019-07-19] MEDS: MELOXICAM 15 MG TABLET. PO SCH (08:18)
[2019-07-19] MEDS: NICOTINE 21MG PATCH. TD SCH (08:18)
[2019-07-19] MEDS: ENOXAPARIN 40 MG/0.4 ML SYRINGE. SQ SCH (08:19)
[2019-07-19] MEDS: AMITRIPTYLINE HCL 25 MG TABLET PO SCH (08:19)
[2019-07-19] MEDS: GABAPENTIN 400 MG CAPSULE. PO SCH ×3 (08:19→20:33)
[2019-07-19] MEDS: IV NORMAL SALINE 1,000ML 1,000 ML IV SCH ×2 (09:00→19:00)
--- NOTE | 2019-07-19 10:48 | NUR ---
Patient compliant with medication and assessment. Patient able to stand several times with Pt/OT. patient right iv reinforced with coban to insure securement. patient has no further needs at this time.
[2019-07-19 11:48] VITALS: BP 93/57
--- NOTE | 2019-07-19 14:28 | HP ---
ADMIT DATE: 07/18/2019 HISTORY OF PRESENT ILLNESS: The patient is a 69-year-old male patient who presented to the Emergency Room with a complaint of fever, generalized weakness and just not feeling well. He denied any cough or shortness of breath. Denied any abdominal pain. He did apparently have multiple episodes of diarrhea on . He also complained of headache, but denied any nausea or vomiting. By the time he arrived to the Emergency Room, he apparently was hypertensive with a blood pressure of 183/41. He was rehydrated aggressively and has received about 2 liters of normal saline, has had an indwelling Aparicio catheter and his urine was positive for nitrite. There was moderate amount of leukocyte esterase, 11-20 wbc's and moderate amount of bacteria and was admitted with diagnosis of sepsis and UTI and was started on IV ceftriaxone together with all his other medications. PAST MEDICAL HISTORY: Significant for peripheral arterial disease, coronary artery disease, status post PTCA with stenting of the subtotally occluded obtuse marginal branch and distal circumflex artery. He has also complete heart block, status post permanent pacemaker, carotid stenosis, hypertension, pneumonia, gastroesophageal reflux disease, benign prostatic hypertrophy, urinary retention, recurrent UTIs, neurogenic bladder for which he self-catheterizes. He has also cervical spine stenosis, status post surgery. He is currently wheelchair bound due to neuropathy, arthritis, chronic pain syndrome, spinal stimulator implantation, anxiety and depression. FAMILY HISTORY: Noncontributory. SOCIAL HISTORY: He is , lives with his . 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 He smokes 2 packs of cigarettes per day. Denied any alcohol. ALLERGIES: He has no known drug allergies. MEDICATIONS: He is currently on following medications: He is on tizanidine 8 mg every 8 hours, Brilinta 90 mg daily, nitroglycerin 0.2 mg sublingually every 5 minutes x 3, aspirin 81 mg once a day, meloxicam 15 mg daily. He is on oxycodone/APAP 10/325 one to two tablets every 6 hours, gabapentin 800 mg 2 times a day, amitriptyline 25 mg at bedtime, nortriptyline 25 mg at bedtime. REVIEW OF SYSTEMS: As per history of present illness. PHYSICAL EXAMINATION: GENERAL: On arrival to the Emergency Room, the patient looked somewhat pale, but no jaundice, cyanosis or thyromegaly. No jugular venous distention or limb edema. VITAL SIGNS: His heart rate was 71, blood pressure was 83/41, temperature of 98.1, respiratory rate was 16, and oxygen saturation was 96% on room air. HEAD, EYES, EARS, NOSE AND THROAT: Showed normocephalic, atraumatic. NECK: Supple. HEART: Showed normal first and second heart sounds. No gallop or murmur. CHEST: Clear to auscultation. No crepitation or rhonchi. ABDOMEN: Distended, soft, nontender. NEUROLOGIC: He was awake, alert, responding appropriately. All cranial nerves intact. EXTREMITIES: He moves extremities without difficulty. He is able to ambulate with a walker for short distances, but he is mostly wheelchair bound. He has an indwelling Aparicio catheter placed at the Emergency Room. Normally he self-catheterizes. LABORATORY DATA: Showed a white cell count of 9400, hemoglobin 15, hematocrit 44, MCV 99 and platelet count of 187,000. His serum sodium was 137, potassium 3.8, chloride 101, bicarbonate 24, anion gap of 12, BUN 23, creatinine 1, estimated GFR was 75 mL per minute. Glucose 112. Lactic acid was 1.4, calcium is 8.6. Total bilirubin, AST, ALT, alkaline phosphatase were normal. His total protein was 6.5, albumin was 2.6. His urinalysis showed the urine was yellow, hazy with a pH of 6, specific gravity of 1.020. There was small amount of protein. The urine was negative for glucose, trace of ketones, moderate amount of blood, positive for nitrite, negative for bilirubin. There was moderate amount of leukocyte esterase, occasional rbc's, 11-22 wbc's, and moderate amount of bacteria. His influenza A and B were negative and group A streptococcus rapid test was negative. His chest x-ray showed that he has elevated right hemidiaphragm. Pacemaker is again identified. Cardiac silhouette similar to prior. Some limitation at the left lung base secondary to underlying cardiac silhouette obscuring but no definite new region of airspace consolidation. Postoperative changes in lower cervical spine with pedicle screws and rods. ASSESSMENT AND PLAN: In summary, this is a 69-year-old male patient who was admitted with sepsis and urinary tract infection. The patient has received at least 2 liters of fluid and started on IV ceftriaxone. We will obviously continue all his other medications and monitor him closely. We will continue with IV fluid for now, continue with DVT prophylaxis, and we will adjust his antibiotics according to the result of urine culture and sensitivity. ARASELI MADISON MD DR: TEODORO/gonzález JOB#: [id number] / [id number]
[2019-07-19 15:46] VITALS: BP 112/72
[2019-07-19 19:45] VITALS: BP 116/71
[2019-07-19] MEDS: NORTRIPTYLINE 25 MG CAPSULE PO SCH (20:33)
[2019-07-19 23:24] VITALS: BP 94/56
[2019-07-20] MEDS: oxyCODONE/APAP 10/325 1 TAB TABLET PO PRN ×2 (02:58→18:54)
[2019-07-20] MEDS: IV NORMAL SALINE 1,000ML 1,000 ML IV SCH ×2 (05:06→15:03)
[2019-07-20 05:55] VITALS: BP 118/62
[2019-07-20] MEDS: tiZANidine 4 MG TABLET. PO SCH ×3 (06:03→20:42)
[2019-07-20] MEDS: TICAGRELOR 90 MG TABLET. PO SCH (08:17)
[2019-07-20] MEDS: AMITRIPTYLINE HCL 25 MG TABLET PO SCH (08:17)
[2019-07-20] MEDS: MELOXICAM 15 MG TABLET. PO SCH (08:17)
[2019-07-20] MEDS: GABAPENTIN 400 MG CAPSULE. PO SCH ×3 (08:17→20:42)
[2019-07-20] MEDS: ASPIRIN ENTERIC COATED 81 MG TABLET.DR. PO SCH (08:17)
[2019-07-20] MEDS: NICOTINE 21MG PATCH. TD SCH (08:18)
[2019-07-20] MEDS: ENOXAPARIN 40 MG/0.4 ML SYRINGE. SQ SCH (08:18)
--- NOTE | 2019-07-20 09:04 | NUR ---
Patient compliant with medication and assessment. patient has no further needs at this time.
[2019-07-20 11:57] VITALS: BP 99/59
[2019-07-20 15:25] VITALS: BP 115/66
--- NOTE | 2019-07-20 19:21 | PN ---
DATE: SUBJECTIVE: The patient is a 69-year-old male patient who was admitted yesterday with weakness, fever and aches and pains, has also had multiple episodes of diarrhea. On arrival to the Emergency Room, his blood pressure was only 83/41 and he was treated aggressively with IV fluid and has had an indwelling Aparicio catheter. Urine was submitted for culture and sensitivity and he received a total of 2 liters of normal saline, continue with IV normal saline, received IV ceftriaxone. When I saw him this morning, he was resting slightly propped up in bed, in no apparent respiratory distress. On questioning him, he denied any complaint, stated that he had generally uneventful night. PHYSICAL EXAMINATION: GENERAL: When I examined him, he looked pale, but no jaundice, cyanosis or thyromegaly. No jugular venous distention. No limb edema. VITAL SIGNS: His heart rate was 70, blood pressure 118/62, temperature was 98.2, respiratory rate was 18 and oxygen saturation was 94%. The rest of clinical exam is stable. LABORATORY DATA: He has no lab work done this morning, did order some labs for tomorrow. His blood cultures are still pending at the time of this dictation. Plan is to continue with IV fluid, continue with IV antibiotic and repeat his labs tomorrow. ASSESSMENT: 1. Sepsis due to urinary tract infection with hypotension. 2. Other medical problems include peripheral arterial disease. 3. Coronary artery disease, status post PTCA with stenting of the subtotally occluded obtuse marginal and distal circumflex artery. 4. Complete heart block, status post permanent pacemaker. Carotid stenosis, ____, gastroesophageal reflux disease, benign prostatic hypertrophy with urinary retention requiring self-catheterization. DICTATION ENDS HERE ARASELI MADISON MD DR: TEODORO/gonzález JOB#: [id number] / [id number]
[2019-07-20] MEDS: NORTRIPTYLINE 25 MG CAPSULE PO SCH (20:43)
[2019-07-20 20:59] VITALS: BP 137/74
[2019-07-20 23:07] VITALS: BP 127/78
[2019-07-21] MEDS: IV NORMAL SALINE 1,000ML 1,000 ML IV SCH (01:00)
[2019-07-21] MEDS: oxyCODONE/APAP 10/325 1 TAB TABLET PO PRN ×4 (03:04→22:13)
[2019-07-21 06:00] VITALS: BP 144/75
[2019-07-21] MEDS: tiZANidine 4 MG TABLET. PO SCH ×3 (06:00→20:15)
[2019-07-21] MEDS: ENOXAPARIN 40 MG/0.4 ML SYRINGE. SQ SCH (08:17)
[2019-07-21] MEDS: MELOXICAM 15 MG TABLET. PO SCH (08:18)
[2019-07-21] MEDS: NICOTINE 21MG PATCH. TD SCH (08:18)
[2019-07-21] MEDS: GABAPENTIN 400 MG CAPSULE. PO SCH ×3 (08:18→20:16)
[2019-07-21] MEDS: ASPIRIN ENTERIC COATED 81 MG TABLET.DR. PO SCH (08:18)
[2019-07-21] MEDS: AMITRIPTYLINE HCL 25 MG TABLET PO SCH (08:18)
[2019-07-21] MEDS: TICAGRELOR 90 MG TABLET. PO SCH (08:18)
[2019-07-21 08:42] LABS: HEMATOCRIT 36.4 % (39.0-53.0); HEMOGLOBIN 12.3 g/dL (13.0-17.5); RED BLOOD COUNT 3.65 x10^6/uL (4.30-5.70); RED CELL DISTRIBUTION WIDTH 14.8 % (11.5-14.5)
[2019-07-21 09:06] LABS: CREATININE 0.6 mg/dL (0.7-1.3); GFR 134.4; POTASSIUM 3.6 mmol/L (3.5-5.1)
--- NOTE | 2019-07-21 10:13 | PN ---
DATE: 07/21/2019 SUBJECTIVE: The patient is resting, slightly propped up in bed, in no apparent distress. He is definitely more awake, alert. On questioning him, he denied any complaint. On examining him, he looked somewhat pale, but not jaundiced, cyanosis or thyromegaly. No jugular venous distention. No lower limb edema. OBJECTIVE: VITAL SIGNS: His heart rate was 76, blood pressure was 144/75, temperature 97.8, respiratory rate 20, and oxygen saturation was 95%. The rest of clinical exam is stable. LABORATORY DATA: His white cell count is down to 5000, hemoglobin 12, hematocrit 36, MCV 100, platelet count of 159,000. Serum sodium was 141, potassium 3.6, chloride 109, bicarbonate 23, anion gap of 9, BUN 9, creatinine 0.6, estimated GFR was 34 mL per minute. Her glucose 119, calcium was 8. His urine culture has grown more than 100,000 colony forming units per mL of gram-negative rods, identification and sensitivity is still pending at the time of this dictation. ASSESSMENT: 1. Sepsis due to urinary tract infection with hypotension, improving. 2. Other medical problems include: A. Peripheral arterial disease. B. Coronary artery disease, status post PTCA with stent deployment. C. Complete heart block, status post permanent pacemaker. D. Carotid stenosis. E. Gastroesophageal reflux disease. F. Benign prostatic hypertrophy. G. Urinary retention requiring self-catheterization. PLAN: To continue with ceftriaxone, continue with pain management. Continue with DVT prophylaxis. I will discontinue his IV fluid and await the result of the identification and sensitivity and we will switch him then to oral antibiotic and can be discharged home. ARASELI MADISON MD DR: TEODORO/gonzález JOB#: [id number] / [id number]
[2019-07-21 10:19] VITALS: BP 137/66
[2019-07-21 15:06] VITALS: BP 115/70
[2019-07-21 19:03] VITALS: BP 129/68
[2019-07-21] MEDS: LACTOBACILLUS RHAMNOSUS GG 1 CAPSULE. PO SCH (20:16)
[2019-07-21] MEDS: NORTRIPTYLINE 25 MG CAPSULE PO SCH (20:17)
[2019-07-21 22:31] VITALS: BP 122/69
[2019-07-22] MEDS: oxyCODONE/APAP 10/325 1 TAB TABLET PO PRN ×2 (04:14→10:52)
[2019-07-22] MEDS: tiZANidine 4 MG TABLET. PO SCH (05:16)
[2019-07-22 06:02] VITALS: BP 127/73
[2019-07-22] MEDS: ASPIRIN ENTERIC COATED 81 MG TABLET.DR. PO SCH (08:28)
[2019-07-22] MEDS: GABAPENTIN 400 MG CAPSULE. PO SCH (08:28)
[2019-07-22] MEDS: AMITRIPTYLINE HCL 25 MG TABLET PO SCH (08:28)
[2019-07-22] MEDS: MELOXICAM 15 MG TABLET. PO SCH (08:29)
[2019-07-22] MEDS: LACTOBACILLUS RHAMNOSUS GG 1 CAPSULE. PO SCH (08:29)
[2019-07-22] MEDS: ENOXAPARIN 40 MG/0.4 ML SYRINGE. SQ SCH (08:29)
[2019-07-22] MEDS: TICAGRELOR 90 MG TABLET. PO SCH (08:29)
[2019-07-22] MEDS: NICOTINE 21MG PATCH. TD SCH (08:30)
[2019-07-22] MEDS ORDERED: CEFD300C PO (11:09)
[2019-07-22 11:26] VITALS: BP 117/74
--- NOTE | 2019-07-22 12:17 | PN ---
DATE: 07/22/2019 SUBJECTIVE: The patient is a 69-year-old male patient who was admitted on 07/26/2019 with complaint of fever, generalized weakness, not feeling generally well. He was initially found to be hypertensive. In fact, his blood pressure was 183 systolic and the urinalysis was positive for nitrite and leukocyturia and moderate amount of leukocyte esterase, was treated aggressively for sepsis with IV fluid and was started on IV Rocephin. After obtaining the appropriate culture, eventually his urine culture has grown greater than 100,000 colony forming units per mL of gram-negative rods identified as Klebsiella pneumoniae, sensitive to all cephalosporins, and therefore, the patient was discharged home to continue on cefdinir 300 mg twice a day for 7 more days. PHYSICAL EXAMINATION: GENERAL: When I saw him today, he looked well and was clearly in no apparent respiratory distress, somewhat pale, no jaundice, cyanosis or thyromegaly. No jugular venous distention. No limb edema. VITAL SIGNS: His heart rate was 65, blood pressure was 127/73, temperature was 98.2, respiratory rate 20, and oxygen saturation was 94% on room air. HEAD, EYES, EARS, NOSE AND THROAT: Showed normocephalic, atraumatic. NECK: Supple. HEART: Showed normal first and second heart sounds. No gallop or murmur. CHEST: Clear to auscultation. No crepitation or rhonchi. ABDOMEN: Distended, soft, nontender. NEUROLOGIC: He is awake, alert, responding appropriately. All cranial nerves are intact. He has functional paraplegia with urinary retention requiring indwelling Aparicio catheter. His intake over the last 24 hours was 1700, output was 1800. LABORATORY DATA: As of this morning showed a white cell count 5000, hemoglobin 12, hematocrit 36, MCV 100, and platelet count 259,000. His chemistry showed serum sodium 141, potassium 3.6, chloride 109, bicarbonate 23, anion gap of 9, BUN 9, creatinine 0.6, estimated GFR was 134 mL per minute. His glucose 119, calcium was 8. DISCHARGE MEDICATIONS: He was discharged home to continue on following medications: Cefdinir 300 mg twice a day for 7 more days, amitriptyline 25 mg at bedtime, aspirin enteric coated 81 mg once a day, gabapentin 800 mg 3 times a day, meloxicam 15 mg once a day, nitroglycerin 0.4 mg sublingually as needed every 5 minutes x 3, nortriptyline 25 mg at bedtime, oxycodone/APAP 10/325 one to two tablets every 6 hours, Brilinta 90 mg once a day and tizanidine 8 mg p.o. q. 8 hours as a muscle relaxant. FINAL DISCHARGE DIAGNOSES: 1. Severe sepsis due to urinary tract infection with growth of Klebsiella pneumoniae. Other medical problems include peripheral arterial disease. 2. Coronary artery disease, status post PTCA and stent deployment; complete heart block, status post permanent pacemaker; hypertension; gastroesophageal reflux disease; benign prostatic hypertrophy with urinary retention. ARASELI MADISON MD DR: TEODORO/gonzález JOB#: [id number] / [id number]
--- NOTE | 2019-07-22 12:27 | NUR ---
NURSING NOTE DISCHARGE PT DISCHARGED HOME VIA WHEELCHAIR PICKED UP BY . PT GIVEN WRITTEN AND VERBAL DISCHARGE INSTRUCTIONS. PT GIVEN SCRIPT FOR ANTIBIOTIC. NO COMPLICATIONS. HAWK JURADO.
== END 2019-07-22 12:28 | disposition home or self-care (01) | DRG 871 ==
LOC: ER 16:26 → 1 SOUTH 20:03
PROVIDERS: ADMIT Internal Medicine; ATTEND Internal Medicine
DX: A41.9 Sepsis, unspecified organism (principal); E43 Unspecified severe protein-calorie malnutrition; N39.0 Urinary tract infection, site not specified; I44.2 Atrioventricular block, complete; I25.10 Atherosclerotic heart disease of native coronary artery without angina pectoris; I10 Essential (primary) hypertension; G89.4 Chronic pain syndrome; I73.9 Peripheral vascular disease, unspecified; F17.210 Nicotine dependence, cigarettes, uncomplicated; R65.20 Severe sepsis without septic shock; K21.9 Gastro-esophageal reflux disease without esophagitis; B96.1 Klebsiella pneumoniae [K. pneumoniae] as the cause of diseases classified elsewhere; N40.1 Benign prostatic hyperplasia with lower urinary tract symptoms; R33.8 Other retention of urine; F32.9 Major depressive disorder, single episode, unspecified; F41.9 Anxiety disorder, unspecified; G62.9 Polyneuropathy, unspecified; M19.90 Unspecified osteoarthritis, unspecified site; M48.02 Spinal stenosis, cervical region; Z99.3 Dependence on wheelchair; Z95.5 Presence of coronary angioplasty implant and graft; Z87.440 Personal history of urinary (tract) infections
CPT/HCPCS: 36415; 51702; 71045; 80048; 80076; 81001; 83605; 84484; 85025; 85027; 87040; 87070; 87086; 87804; 87880; 93005; 96361; 96365; 99406; J0696; J1650; 99285-25; J7030

== ENCOUNTER 2019-09-26 14:37 | Observation (INO) | payer MEDICARE ==
[~2019-09-26] VITALS: Ht 172.7 cm; Wt 92.7 kg
[~2019-09-26 14:37] MED LIST changes: +CEFD300C PO; +GABA800T5 PO; +TICA90TA PO
--- NOTE | 2019-09-26 15:06 | EKG ---
[address] [address] Test Date: 2019-09-26 Test Time: 14:49:03 Pat Name: NOAH LANZA Department: Room: Gender: M [employer] Operator: ABUNDIO: 1950 Requested By: MONE SMART Order Number: [id number] Reading MD: Yaakov Aggarwal MD Measurements Intervals [place] Rate: 92 P: 27 DE: 150 QRS: -37 QRSD: 116 T: 96 QT: 370 QTc: 463 Interpretive Statements SINUS RHYTHM LAFB RBBB NON-SPECIFIC ST/T CHANGES Electronically Signed On 09-29-2019 12:18:51 CDT by Yaakov Aggarwal MD
--- NOTE | 2019-09-26 15:10 | PHYS DOC ---
Past History Past Medical History: Angina, Arrhythmia, CAD, Hypertension, Other Additional Past Medical Histor: chronic back pain Past Surgical History: Pacemaker Additional Past Surgical Histo: cardiac stent Smoking: Cigarettes, Greater than 1 pack/day Alcohol Use: None Drug Use: None General Adult EDM: Chief Complaint: WEAKNESS/GENERALIZED HPI: HPI: 69-year-old male presents as a referral from his primary care physician for generalized weakness. Patient tells me he has been feeling weak for about the last 1 week. He has decreased appetite. He has been drinking fluids. He does note any specific clinic complaints other than feeling exhausted all the time. Patient has a history of heart problems. He has a pacemaker as well as for stents. He has not followed up his cardiac issues in a couple years. He denies chest pain. He is not sure if he has had a fever. Review of Systems: Review of Systems: Constitutional: Weakness, fatigue. Denies fever or chills Eyes: Denies change in visual acuity HENT: Denies nasal congestion or sore throat Respiratory: Denies cough or shortness of breath Cardiovascular: Denies chest pain or edema GI: Denies abdominal pain, nausea, vomiting, bloody stools or diarrhea : Denies dysuria Musculoskeletal: Denies back pain or joint pain Integument: Denies rash Neurologic: Denies headache, focal weakness or sensory changes Endocrine: Denies polyuria or polydipsia Lymphatic: Denies swollen glands Psychiatric: Denies depression or anxiety Heart Score: Risk Factors: Risk Factors: DM, Current or recent (<one month) smoker, HTN, HLP, family history of CAD, obesity. Risk Scores: Score 0 - 3: 2.5% MACE over next 6 weeks - Discharge Home Score 4 - 6: 20.3% MACE over next 6 weeks - Admit for Clinical Observation Score 7 - 10: 72.7% MACE over next 6 weeks - Early Invasive Strategies Allergies: Allergies: Allergies Coded Allergies Type Severity Reaction Last Updated Verified No Known Drug Allergies 07/10/14 No Physical Exam: PE: Constitutional: Well developed, well nourished, mild acute distress, non-toxic appearance. [] HENT: Normocephalic, atraumatic, bilateral external ears normal, oropharynx moist, no oral exudates, nose normal. [] Eyes: PERRLA, EOMI, conjunctiva normal, no discharge. [] Neck: Normal range of motion, no tenderness, supple, no stridor. [] Cardiovascular: Heart rate 92, regular rhythm, no murmur. Low blood pressure [] Lungs & Thorax: Bilateral breath sounds clear to auscultation [] Abdomen: Bowel sounds normal, soft, no tenderness, no masses, no pulsatile masses. [] Skin: Warm, diaphoretic, no erythema, no rash. [] Back: No tenderness, no CVA tenderness. [] Extremities: No tenderness, no cyanosis, no clubbing, ROM intact, no edema. [] Neurologic: Alert and oriented X 3, normal motor function, normal sensory function, no focal deficits noted. [] Psychologic: Affect normal, judgement normal, mood normal. [] EKG: EKG: Sinus rhythm, rate 92, leftward axis, right bundle branch block, no ST elevations or depressions. [] Radiology/Procedures: Radiology/Procedures: [] Impressions: EXAM: Chest, single view. HISTORY: Weakness. COMPARISON: 07/18/2019 FINDINGS: A frontal view of the chest is obtained. There is stable elevation of the right hemidiaphragm and suspected right middle and lower lobe compressive atelectasis. There is no consolidation, pleural effusion or pneumothorax. The heart is normal in size. There is a cardiac pacemaker unchanged in position. There is cervical spinal fusion instrumentation. IMPRESSION: Stable elevated right hemidiaphragm with suspected right middle and lower lobe compressive atelectasis. Electronically signed by: Shivani Tafoya MD (09/26/2019 3:11 PM) [id number] DICTATED AND SIGNED BY: SHIVANI TAFOYA MD DATE: 09/26/19 1511 CC: MONE SMART DO; JAMIA VELAZCO MD ~ Course & Med Decision Making: Course & Med Decision Making Pertinent Labs and Imaging studies reviewed. (See chart for details) On arrival the patient was fairly diaphoretic and pale. His initial blood pressure was systolic of 90. It then dropped into the 70s. An immediate 1 L of normal saline was started. A second liter was started a second IV site. His blood pressure is currently 84/44 with a map of 57. It has begun to improve with the fluids which are not yet complete. Patient does not have a fever on arrival. I am concerned about sepsis, though no source is identified at this time. The patient's chest x-ray is negative for pneumonia. After 2 L of fluid, he has a map of blood pressure improved to 67. His urinalysis is pending. Blood cultures and lactic acid have been drawn. His lactic acid is 1.8. I have ordered a gram of Rocephin though I am not sure there is any infection. This could just be significant dehydration. I will admit the patient to the hospital for further management. I spoke with Dr. Knight and he has accepted the patient for admission. His blood pressure further improved to 117/36 with a heart rate of 65. [] Dragon Disclaimer: Dragon Disclaimer: This electronic medical record was generated, in whole or in part, using a voice recognition dictation system. Departure Departure: Impression: Primary Impression: Dehydration Additional Impressions: UTI (urinary tract infection) Qualified Codes: N30.01 - Acute cystitis with hematuria Sepsis due to gram-negative UTI Disposition: ADMITTED INPATIENT Admitting Physician: Deepak Knight Condition: IMPROVED Referrals: JAMIA VELAZCO MD (PCP) Sepsis Assessment: Date and Time of Assessment Date: September 26, 2019 Time: 15:41 Respirations Respiratory Effort: Normal Respiratory Pattern: Normal Cardiovascular Pulse Rhythm: Regular HEART: No murmurs noted Lung Sounds Breath Sounds: Diminished Capillary Refill Capillary Refill: Rt Hand > 3 seconds Peripheral Pulse Pulse Location: Monitor Pulse Strength: Weak (1+) Pulse Assessment Method: Monitor Integumentary Skin: Diaphoretic Skin Moisture: Diaphoretic Skin Turgor: Decreased Skin Color: pallor Fingernail Color: WNL Sepsis Assessment: Date and Time of Assessment Date: September 26, 2019 Time: 16:50 Respirations Respiratory Effort: Normal Respiratory Pattern: Normal Cardiovascular Pulse Rhythm: Regular HEART: No murmurs noted Lung Sounds Breath Sounds: Diminished Capillary Refill Capillary Refill: Rt Hand < 3 seconds Peripheral Pulse Pulse Location: Monitor Pulse Strength: Normal (2+) Pulse Assessment Method: Monitor Integumentary Skin: Warm Skin Moisture: Dry Skin Turgor: Normal Skin Color: no erythema Fingernail Color: WNL MONE SMART DO September 26, 2019 15:09
--- NOTE | 2019-09-26 15:14 | RAD ---
EXAM: Chest, single view. HISTORY: Weakness. COMPARISON: 07/18/2019 FINDINGS: A frontal view of the chest is obtained. There is stable elevation of the right hemidiaphragm and suspected right middle and lower lobe compressive atelectasis. There is no consolidation, pleural effusion or pneumothorax. The heart is normal in size. There is a cardiac pacemaker unchanged in position. There is cervical spinal fusion instrumentation. IMPRESSION: Stable elevated right hemidiaphragm with suspected right middle and lower lobe compressive atelectasis. Electronically signed by: Shivani Graham MD (09/26/2019 3:11 PM) [id number]
[2019-09-26] MEDS ORDERED: IV NORMAL SALINE 1,000ML 1,000 ML IV ONE ×2 (15:15→15:30)
[2019-09-26 15:17] LABS: BASO # 0.1 x10^3/uL (0.0-0.2); BASO % 0 % (0-3); EOS % 0 % (0-3); HEMATOCRIT 31.3 % (39.0-53.0); HEMOGLOBIN 10.7 g/dL (13.0-17.5); LYMPH # 0.6 x10^3/uL (1.0-4.8); LYMPH % 5 % (24-48); MEAN CORPUSCULAR HEMOGLOBIN 34 pg (25-35); MEAN CORPUSCULAR HGB CONC 34 g/dL (31-37); MEAN CORPUSCULAR VOLUME 100 fL (79-100); MONO # 0.6 x10^3/uL (0.0-1.1); MONO % 5 % (0-9); NEUT # 11.1 x10^3uL (1.8-7.7); NEUT % 90 % (31-73); PLATELET COUNT 229 x10^3/uL (140-400); RED BLOOD COUNT 3.15 x10^6/uL (4.30-5.70); RED CELL DISTRIBUTION WIDTH 16.4 % (11.5-14.5); WHITE BLOOD COUNT 12.3 x10^3/uL (4.0-11.0)
[2019-09-26 15:27] LABS: CALCIUM 8.8 mg/dL (8.5-10.1); CREATININE 1.4 mg/dL (0.7-1.3); GFR 50.5; POTASSIUM 4.1 mmol/L (3.5-5.1)
[2019-09-26 15:33] LABS: ALBUMIN 2.6 g/dL (3.4-5.0); ALBUMIN/GLOBULIN RATIO 0.6 (1.0-1.7); TOTAL BILIRUBIN 0.6 mg/dL (0.2-1.0)
[2019-09-26] MEDS ORDERED: IV NORMAL SALINE 1,000ML 2,040 ML IV SCH (15:45)
[2019-09-26] MEDS: IV NORMAL SALINE 1,000ML 1,000 ML IV SCH ×3 (16:00→19:45)
[2019-09-26] MEDS ORDERED: cefTRIAXone SODIUM 1 GM VIAL ONE ×3 (16:25→16:35)
[2019-09-26] MEDS ORDERED: IV NORMAL SALINE 50ML 50 ML ONE ×3 (16:25→16:34)
[2019-09-26 16:30] LABS: COLOR,URINE YELLOW
[2019-09-26 16:31] LABS: CLARITY,URINE TURBID; GLUCOSE,URINE 100 mg/dL (NEG)
[2019-09-26 16:34] LABS: NITRITE,URINE POS (NEG)
[2019-09-26 16:41] LABS: BILIRUBIN,URINE NEG (NEG)
[2019-09-26 16:43] LABS: BACTERIA,URINE MANY /HPF (0-FEW); SQUAMOUS EPITHELIAL CELL,UR MOD /LPF
[2019-09-26 16:44] LABS: AMORPHOUS SEDIMENT,UR PRESENT /HPF; HYALINE CASTS, URINE FEW /HPF
[2019-09-26] MEDS ORDERED: ONDANSETRON PF 4 MG/2 ML VIAL. IVP PRN (17:30)
[2019-09-26 17:39] VITALS: BP 82/46
[2019-09-26 18:32] VITALS: BP 90/50
[2019-09-26 19:53] VITALS: BP 97/61
[2019-09-26] MEDS: oxyCODONE/APAP 10/325 1 TAB TABLET PO PRN (21:10)
[2019-09-26 23:20] VITALS: BP 95/58
[2019-09-27] MEDS: oxyCODONE/APAP 10/325 1 TAB TABLET PO PRN ×2 (03:08→10:08)
[2019-09-27] MEDS: IV NORMAL SALINE 1,000ML 1,000 ML IV SCH (05:09)
[2019-09-27 06:01] VITALS: BP 93/56
[2019-09-27] MEDS ORDERED: GABAPENTIN 300 MG CAPSULE. PO SCH (09:00)
[2019-09-27] MEDS ORDERED: CEFDINIR 300 MG CAPSULE PO SCH (09:00)
[2019-09-27] MEDS ORDERED: NICOTINE 21MG PATCH. TD SCH (09:00)
[2019-09-27] MEDS ORDERED: TICAGRELOR 90 MG TABLET. PO SCH (09:00)
[2019-09-27] MEDS ORDERED: GABAPENTIN 400 MG CAPSULE. PO SCH (09:00)
[2019-09-27] MEDS ORDERED: ASPIRIN ENTERIC COATED 81 MG TABLET.DR. PO SCH (09:00)
--- NOTE | 2019-09-27 09:29 | HP ---
ADMIT DATE: 09/26/2019 ATTENDING PHYSICIAN: Dr. Sargent. CHIEF COMPLAINT: Weakness. HISTORY OF PRESENT ILLNESS: The patient is a 69-year-old gentleman who was at his primary care doctor's office for refills. He has had generalized weakness, had not felt good, had not felt well. He has been weak for the last 7 days. He has decreased appetite. He has been drinking fluids. He denied any fevers. He has a history of heart disease. He also has a neurogenic bladder, resulting in self-catheterization. He has cardiac issues, frequent UTIs. The main problem was his blood pressure. It was quite hypotensive. Initial blood pressure in the ED was in the 70s. He was given several liters of fluid. Blood pressure remained low between 80 and 90 systolic. It was still measured at 84/44 mmHg. Urine did not show any significant infection. Lactic acidosis was not present. He was given a gram of Rocephin. I spoke with the ER doctor. He was clinically dehydrated. He will be admitted for IV hydration. He is not on any blood pressure meds given the fact that he has a history of hypertension. PAST MEDICAL HISTORY: Significant for coronary artery disease with a previous stent, angina, cardiac arrhythmia, essential hypertension, permanent pacemaker, chronic low back pain, peripheral neuropathy. MEDICATIONS: His scheduled medicines include amitriptyline, aspirin, Carafate, Neurontin, meloxicam, nitroglycerin, nortriptyline, oxycodone, Brilinta, and Zanaflex. ALLERGIES: He has no known drug allergies. SOCIAL HISTORY: He continues to smoke one packet of cigarettes daily. He denies any significant alcohol use. FAMILY HISTORY: Unremarkable. REVIEW OF SYSTEMS: Significant for generalized weakness. No recent travel, fevers, chills, cough, congestion, dyspnea, palpitations. No nausea. He has a neurogenic bladder. He does self-catheterization. No fevers or chills. All other systems reviewed and turned to be negative. PHYSICAL EXAMINATION: GENERAL: When I saw him, this is a pleasant elderly gentleman who appears older than the stated age. VITAL SIGNS: Initial vital signs this morning showed a blood pressure of 97/61, pulse is 70 and regular, temperature 97.9 degrees Fahrenheit, oxygen saturation 96% on room air. HEENT: Head is without trauma. Pupils are reactive. Sclerae are nonicteric. Oropharynx clear. Mucous membrane was dry. NECK: Supple, no bruits identified. LUNGS: Otherwise clear. CARDIOVASCULAR: Showed regular heart tones. No gallops, no murmurs. Peripheral pulses are palpable and full. ABDOMEN: Obese, protuberant. No organomegaly. Bowel sounds are hypoactive. EXTREMITIES: Showed no cyanosis or edema. NEUROLOGIC: Focally intact. Speech is fluent. The patient is not usually ambulatory. PERTINENT LABORATORY AND X-RAY STUDIES: His hemoglobin is 10.7 g/dL with a white count of 12,300. Sodium was 141, creatinine was 1.4 mg/dL, with a BUN of 39, nonfasting blood sugar 145, lactic acid 1.8. Transaminases normal. Cardiac enzymes negative for myocardial necrosis. Chest x-ray in the ED showed no acute infiltrate. He has some chronic atelectasis at the bases. Urinalysis had been sent and cultures are pending at this time. He does have many bacteria, but this is not a clean catch specimen. ASSESSMENT: 1. A 69-year-old gentleman with dehydration. 2. Hypotension. 3. Known coronary artery disease. 4. Neurogenic bladder. 5. Peripheral vascular disease. 6. Peripheral neuropathy. 7. History of frequent urinary tract infections. PLAN: 1. Admit to inpatient unit. 2. Urine cultures are pending. 3. Empiric fluids. 4. Empiric antibiotics, Rocephin has been chosen. 5. We will continue some home meds. LISANDRA SARGENT MD DR: MAYTE/gonzález JOB#: [id number] / [id number] JAMIA Yanes MD
--- NOTE | 2019-09-27 12:54 | DS ---
DATE OF DISCHARGE: 09/27/2019 ATTENDING PHYSICIAN: Dr. Sargent. FINAL DISCHARGE DIAGNOSES: 1. Symptomatic hypotension. 2. Dehydration, rehydrated. 3. Known coronary artery disease. 4. Chronic obstructive pulmonary disease with continued tobacco use. 5. Permanent pacemaker. 6. Urinary tract infection. 7. Neurogenic bladder requiring straight catheterization. 8. Degenerative joint disease. 9. Chronic pain syndrome. HISTORY AND PHYSICAL: This is a 69-year-old gentleman admitted through the ED with hypotension. He was at his doctor's office getting refills. He is on quite a bit of meds for pain including Neurontin and hydrocodone 20 mg every 6 hours. The patient had urine cultures drawn. He has a neurogenic bladder. He was given several liters of fluid. His blood pressure is still marginal 80/40 systolic. He was admitted for further treatment and evaluation, on IV hydration. PHYSICAL EXAMINATION: Please see the dictated note. PERTINENT LABORATORY AND X-RAY STUDIES: Cultures are pending. The hemoglobin was 10.7 g/dL with a white count of 12,000. Creatinine was 1.4 mg/dL, BUN 39, potassium 4.1 mEq. Cardiac enzymes negative for myocardial necrosis. Lactic acid was 1.8. COURSE IN THE HOSPITAL: The patient was admitted. He was continued on IV hydration. He received several liters of saline in the Emergency Department. He received a gram of Rocephin. Cultures were pending. He had a regular diet. He did fairly well. By the next day, blood pressure was up to 97 mmHg. We did orthostatic blood pressure. There was no change. His skin was warm and dry. He wanted to go home. I felt this is reasonable. Right now, cultures will not be available for several days. I did recommend continuation of empiric antibiotics because of bacteriuria and frequent infections. I therefore wrote a script for cephalexin 500 mg p.o. t.i.d. He can continue his other home meds including amitriptyline, aspirin, Neurontin, oxycodone, and Brilinta, dose is unchanged. For now, I have asked him to hold the nitroglycerin, meloxicam and Zanaflex due to hypotension. No restriction on diet. He will follow up with his primary care physician as scheduled. He was discharged there from our hospital in stable condition with explicit instructions and followup care. LISANDRA SARGENT MD DR: MAYTE/gonzález JOB#: [id number] / [id number] JAMIA Yanes MD
== END 2019-09-27 10:20 | disposition home or self-care (01) ==
LOC: ER 14:37 → INTOOBSV 17:35 → 1 SOUTH 17:35
PROVIDERS: ADMIT Hospitalist; ATTEND Hospitalist
DX: A41.50 Gram-negative sepsis, unspecified (principal); I20.9 Angina pectoris, unspecified; I95.9 Hypotension, unspecified; E86.0 Dehydration; R53.1 Weakness; N31.9 Neuromuscular dysfunction of bladder, unspecified; N30.01 Acute cystitis with hematuria; I73.9 Peripheral vascular disease, unspecified; I10 Essential (primary) hypertension; E78.5 Hyperlipidemia, unspecified; G62.9 Polyneuropathy, unspecified; E66.9 Obesity, unspecified; F17.210 Nicotine dependence, cigarettes, uncomplicated; Z87.440 Personal history of urinary (tract) infections; Z95.1 Presence of aortocoronary bypass graft; Z95.0 Presence of cardiac pacemaker; Z68.31 Body mass index [BMI] 31.0-31.9, adult
CPT/HCPCS: 36415; 71045; 80053; 81001; 82947; 83605; 84484; 85025; 87040; 87086; 93005; 96361; 96365; 99291; 99406; G0378; J0696; G0379; 99285-25; J7030

== ENCOUNTER 2019-09-27 14:39 | Emergency (ER) | payer MEDICARE ==
[~2019-09-27] VITALS: Ht 172.7 cm; Wt 92.7 kg
[2019-09-27 15:23] LABS: BASO # 0.1 x10^3/uL (0.0-0.2); BASO % 0 % (0-3); EOS % 0 % (0-3); HEMATOCRIT 21.5 % (39.0-53.0); HEMOGLOBIN 7.2 g/dL (13.0-17.5); LYMPH # 1.6 x10^3/uL (1.0-4.8); LYMPH % 10 % (24-48); MEAN CORPUSCULAR HEMOGLOBIN 35 pg (25-35); MEAN CORPUSCULAR HGB CONC 34 g/dL (31-37); MEAN CORPUSCULAR VOLUME 103 fL (79-100); MONO # 1.1 x10^3/uL (0.0-1.1); MONO % 7 % (0-9); NEUT # 13.3 x10^3uL (1.8-7.7); NEUT % 82 % (31-73); PLATELET COUNT 343 x10^3/uL (140-400); RED BLOOD COUNT 2.09 x10^6/uL (4.30-5.70); RED CELL DISTRIBUTION WIDTH 16.4 % (11.5-14.5); WHITE BLOOD COUNT 16.1 x10^3/uL (4.0-11.0)
--- NOTE | 2019-09-27 15:25 | PHYS DOC ---
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 The patient was seen by myself yesterday and he was admitted for urosepsis. He went home this morning and after getting home he just started to feel more short of breath. He feels like if he sits up he cannot breathe. He also states that he feels like his abdomen is more full than usual. Patient denies any new exp osures or trauma. (MONE SMART DO) Review of Systems: Review of Systems: Constitutional: Denies fever or chills Eyes: Denies change in visual acuity HENT: Denies nasal congestion or sore throat Respiratory: Shortness of breath Cardiovascular: Denies chest pain or edema GI: Generalized abdominal pain. Denies nausea, vomiting, bloody stools or diarrhea : Denies dysuria Musculoskeletal: Denies back pain or joint pain Integument: Denies rash Neurologic: Denies headache, focal weakness or sensory changes Endocrine: Denies polyuria or polydipsia Lymphatic: Denies swollen glands Psychiatric: Denies depression or anxiety (MONE SMART DO) Heart Score: Risk Factors: Risk Factors: DM, Current or recent (<one month) smoker, HTN, HLP, family history of CAD, obesity. Risk Scores: Score 0 - 3: 2.5% MACE over next 6 weeks - Discharge Home Score 4 - 6: 20.3% MACE over next 6 weeks - Admit for Clinical Observation Score 7 - 10: 72.7% MACE over next 6 weeks - Early Invasive Strategies (SMART,MONE DO) Allergies: Allergies: Allergies Coded Allergies Type Severity Reaction Last Updated Verified No Known Drug Allergies 07/10/14 No (MONE SMART DO) Physical Exam: PE: Constitutional: Well developed, well nourished, obese, mild acute distress, non- toxic appearance. [] HENT: Normocephalic, atraumatic, bilateral external ears normal, oropharynx moist, no oral exudates, nose normal. [] Eyes: PERRLA, EOMI, conjunctiva normal, no discharge. [] Neck: Normal range of motion, no tenderness, supple, no stridor. [] Cardiovascular: Heart rate 112, regular rhythm, no murmur [] Lungs & Thorax: Bilateral breath sounds diminished [] Abdomen: Bowel sounds normal, soft, no tenderness, no masses, no pulsatile masses. [] Skin: Warm, dry, no erythema, no rash. [] Back: No tenderness, no CVA tenderness. [] Extremities: No tenderness, no cyanosis, no clubbing, ROM intact, no edema. [] Neurologic: Alert and oriented X 3, normal motor function, normal sensory function, no focal deficits noted. [] Psychologic: Affect normal, judgement normal, mood normal. [] (MONE SMART DO) EKG: EKG: Sinus tachycardia, rate 112, leftward axis, right bundle branch block, no ST elevations or depressions. [] (MONE SMART DO) Radiology/Procedures: Radiology/Procedures: [] (MONE SMART DO) Radiology/Procedures: [place] [address] IMAGING REPORT Signed PATIENT: NOAH LANZA ACCOUNT: [id number] : 1950 LOCATION: ER AGE: 69 SEX: M EXAM STATUS: REG ER ORD. PHYSICIAN: MONE SMART DO REASON: low hemoglobin, abdominal pain, SOB PROCEDURE: CT CHEST ABD PELVIS W/CONTRAST CT chest with contrast, CT abdomen pelvis with contrast. HISTORY: Abdominal pain, low hemoglobin, short of breath CT CHEST: CT scan of the chest was done using 75 mL Omnipaque 300 contrast. Thyroid is homogeneous. There is no mediastinal adenopathy or pleural effusion. There is mild atherosclerotic change in the aorta without an aneurysm. There is no central pulmonary embolus. There is mild hypertrophic change in the thoracic spine. There are emphysematous changes in the lungs. There is mild atelectasis along the diaphragms with elevation of the right diaphragm. There are mild hazy groundglass left lung infiltrates or edema. IMPRESSION: 1. Elevated right diaphragm with atelectasis or scarring along the right diaphragm. 2. Groundglass hazy left lung infiltrates or edema. End impression CT abdomen pelvis CT scan the abdomen pelvis was done following CT chest with contrast. A liver lesion is not identified. Gallbladder is mildly contracted. There is either a polyp or noncalcified gallstone the gallbladder. Spleen is unremarkable. There is a 0.5 cm right adrenal lesion without change compared to an old study from May 2007. Pancreas is normal in appearance. There is a small duodenal diverticulum. There is lobulation of the kidneys. There are left renal cysts. There are indistinct areas of decreased density in the left kidney anteriorly in the mid kidney and posteriorly in the mid kidney, mass is possible, pyelonephritis can have this pattern. There is no periaortic adenopathy. Bowel pattern is normal. There is no intra-abdominal hemorrhage. There is moderate stool in colon. There is thickening of the bladder wall which is diffuse. Appendix is normal. IMPRESSION: 1. Heterogeneous foci of decreased density in the left kidney which could be pyelonephritis or an indistinct mass follow-up study would be of benefit. 2. Other cysts noted in the kidneys. 3. No other abdominal or pelvic mass noted (VANESA HERNANDEZ MD) Course & Med Decision Making: Course & Med Decision Making Pertinent Labs and Imaging studies reviewed. (See chart for details) Patient's chest x-ray is similar to previous. His labs are significant for several abnormal findings. See labs for more details. His hemoglobin is 7.2 which is a decrease of 3 mg/dL from yesterday. This is concerning for acute bleeding. I performed a rectal exam which did not show obvious bleeding. I ordered a CT of the chest abdomen and pelvis to further evaluate shortness of breath as well as the abdominal cavity. His blood pressure ranges from 121/85, to borderline hypotensive with a map of 65. His heart rate on arrival was 112, with fluids it has improved 92. His blood sugar is elevated but he has no previous record of elevated blood sugar. His BUN continues to suggest dehydration, but his proBNP is over 3100. His previous chart shows 1700 and previous to that normal BNP. The patient's CT of the chest abdomen and pelvis is pending. These results will be important to determining his disposition. I am signing the patient out to Dr. Hernandez at 1800. [] (MONE SMART DO) Course & Med Decision Making See Dr. Smart chart for detail. I discussed presentation, testing and treatment plan with Dr. Stiles will accept pt. in transfer. Critical Care: 90 min Central Line Placement.- Emergent need- Meds, Labs Draws, Pressor's ect. Pt.advised he had them in the past. Rt. I/J , Clavicle prep. Sterile glove mask had down and draping. Placed in Trendelenburg position. Did require repeat stick due to patient movement. Rt.,I J cannulated by cylinder technique. Biopatch. Sutured in place. Follow-up x-ray showed no pneumothorax. Adequate placement. Sterile dressing. Impression: 1. Sirs/sepsis 2. Hypotension 3. Pyelonephritis 4. Anemia hemoglobin 7.2 Macrocytic 103 5. Leukocytosis 16.1 with segs 75 and teardrops 6. Diabetes glucose elevated 343 7. Urinary tract infection 8. Hx. CHF- BNP currently 3,150 (VANESA HERNANDEZ MD) Dragon Disclaimer: Dragruperto Disclaimer: This electronic medical record was generated, in whole or in part, using a voice recognition dictation system. (MONE SMART DO) Departure Departure: Disposition: ADMITTED INPATIENT Condition: GUARDED Referrals: JAMIA VELAZCO MD (PCP) MONE SMART DO September 27, 2019 15:25 VANESA HERNANDEZ MD September 27, 2019 20:09
[2019-09-27] MEDS ORDERED: PIPERACILLIN/TAZOBACTAM 3.375 GM in IV NORMAL SALINE 50ML 50 ML IV ONE (15:30)
--- NOTE | 2019-09-27 15:42 | RAD ---
CHEST AP ONLY History: Reason: SOB / Spl. Instructions: / History: Comparison: September 26, 2019 Findings: Low lung volumes. Elevation the right hemidiaphragm. Right basilar atelectasis, unchanged. Postop changes cervical spine. Stable left-sided pacemaker. Impression: 1. Elevation the right hemidiaphragm with patchy right basilar opacity, likely atelectasis, unchanged. Electronically signed by: Beto Royal DO (09/27/2019 3:39 PM) [id number]
[2019-09-27 15:47] LABS: CALCIUM 7.5 mg/dL (8.5-10.1); CREATININE 1.2 mg/dL (0.7-1.3); GFR 60.4; POTASSIUM 4.2 mmol/L (3.5-5.1)
--- NOTE | 2019-09-27 15:56 | RAD ---
KUB History: Reason: abdominal pain / Spl. Instructions: PT unable to lay flat, pt motion / History: Technique: Supine view the abdomen. Comparison: None. Findings: Examination degraded due to patient motion. Mildly dilated air-filled loops of small bowel within the left mid abdomen. Air and stool scattered throughout the imaged colon. Multilevel lumbar stenosis. Spinal stimulator noted. Impression: 1. Motion degraded evaluation. 2. Mildly dilated air-filled loops of small bowel within the left mid abdomen, may represent ileus or enteritis. Recommend follow-up to exclude developing obstruction. Electronically signed by: Beto Royal DO (09/27/2019 3:54 PM) [id number]
[2019-09-27 16:00] LABS: % BANDS 5 % (0-9); % EOS 1 % (0-5); % LYMPHS 9 % (24-48); % METAS 2 % (0-0); % MONOS 8 % (0-10); % SEGS 75 % (35-66)
[2019-09-27 16:01] LABS: ALBUMIN/GLOBULIN RATIO 0.7 (1.0-1.7); PLT ESTIMATE ADEQUATE (ADEQUATE); TOTAL BILIRUBIN 0.3 mg/dL (0.2-1.0); TOTAL PROTEIN 4.7 g/dL (6.4-8.2)
[2019-09-27 16:02] LABS: ANISOCYTOSIS MOD; HYPOCHROMIA MOD; POIKILOCYTOSIS MOD; TEAR DROP CELLS OCC
[2019-09-27 16:03] LABS: HYPERSEGS PRESENT; TOXIC GRANULATION SLIGHT
--- NOTE | 2019-09-27 16:17 | EKG ---
[address] [address] Test Date: 2019-09-27 Test Time: 15:07:38 Pat Name: NOAH LANZA Department: Room: Gender: M [employer]: ABUNDIO: 1950 Requested By: MONE SMART Order Number: [id number] Reading MD: Yaakov Aggarwal MD Measurements Intervals [place] Rate: 112 P: 90 AR: 148 QRS: -46 QRSD: 106 T: 103 QT: 336 QTc: 460 Interpretive Statements SINUS TACHYCARDIA LAFB RBBB NON-SPECIFIC ST/T CHANGES Electronically Signed On 09-29-2019 12:21:56 CDT by Yaakov Aggarwal MD
[2019-09-27 16:31] LABS: FECAL OB PT NEGATIVE (NEG)
[2019-09-27] MEDS ORDERED: PANTOPRAZOLE IV 40 MG VIAL. IVP ONE (16:45)
[2019-09-27] MEDS ORDERED: IOHEXOL 300 MG/ML 75 ML VIAL. IV ONE (16:55)
[2019-09-27] MEDS ORDERED: IV NORMAL SALINE 50ML 50 ML ONE (17:03)
[2019-09-27] MEDS ORDERED: PIPERACILLIN/TAZOBACTAM 3.375 GM VIAL IV ONE (17:03)
--- NOTE | 2019-09-27 18:21 | RAD ---
CT chest with contrast, CT abdomen pelvis with contrast. HISTORY: Abdominal pain, low hemoglobin, short of breath CT CHEST: CT scan of the chest was done using 75 mL Omnipaque 300 contrast. Thyroid is homogeneous. There is no mediastinal adenopathy or pleural effusion. There is mild atherosclerotic change in the aorta without an aneurysm. There is no central pulmonary embolus. There is mild hypertrophic change in the thoracic spine. There are emphysematous changes in the lungs. There is mild atelectasis along the diaphragms with elevation of the right diaphragm. There are mild hazy groundglass left lung infiltrates or edema. IMPRESSION: 1. Elevated right diaphragm with atelectasis or scarring along the right diaphragm. 2. Groundglass hazy left lung infiltrates or edema. End impression CT abdomen pelvis CT scan the abdomen pelvis was done following CT chest with contrast. A liver lesion is not identified. Gallbladder is mildly contracted. There is either a polyp or noncalcified gallstone the gallbladder. Spleen is unremarkable. There is a 0.5 cm right adrenal lesion without change compared to an old study from May 2007. Pancreas is normal in appearance. There is a small duodenal diverticulum. There is lobulation of the kidneys. There are left renal cysts. There are indistinct areas of decreased density in the left kidney anteriorly in the mid kidney and posteriorly in the mid kidney, mass is possible, pyelonephritis can have this pattern. There is no periaortic adenopathy. Bowel pattern is normal. There is no intra-abdominal hemorrhage. There is moderate stool in colon. There is thickening of the bladder wall which is diffuse. Appendix is normal. IMPRESSION: 1. Heterogeneous foci of decreased density in the left kidney which could be pyelonephritis or an indistinct mass follow-up study would be of benefit. 2. Other cysts noted in the kidneys. 3. No other abdominal or pelvic mass noted PQRS Compliance Statement: One or more of the following individualized dose reduction techniques were utilized for this examination: 1. Automated exposure control 2. Adjustment of the mA and/or kV according to patient size 3. Use of iterative reconstruction technique Electronically signed by: Avinash Tang MD (09/27/2019 6:18 PM) [facility]
[2019-09-27 18:26] LABS: BILIRUBIN,URINE NEG (NEG); CLARITY,URINE CLOUDY; COLOR,URINE AMBER; GLUCOSE,URINE NEG (NEG); NITRITE,URINE NEG (NEG)
[2019-09-27 18:27] LABS: AMORPHOUS SEDIMENT,UR PRESENT /HPF; BACTERIA,URINE MANY /HPF (0-FEW); GRANULAR CASTS,URINE FEW /HPF; HYALINE CASTS, URINE FEW /HPF; SQUAMOUS EPITHELIAL CELL,UR MOD /LPF; WBC,URINE >40 /HPF (0-4)
[2019-09-27] MEDS ORDERED: IV NORMAL SALINE 1,000ML 1,000 ML IV ONE (18:30)
[2019-09-27] MEDS ORDERED: FUROSEMIDE 40 MG/4 ML VIAL IVP ONE (18:30)
[2019-09-27] MEDS ORDERED: NOREPINEPHRINE BITARTRATE 4 MG/4 ML VIAL. IV ONE (20:45)
[2019-09-27] MEDS ORDERED: IV NORMAL SALINE 250ML 250 ML ONE (20:45)
--- NOTE | 2019-09-27 21:28 | RAD ---
AP chest. HISTORY: Line placement AP view was taken of the chest. There is a right jugular central line which extends to the superior vena cava in good position. There is a left pacemaker without change with atrial and ventricular pacing leads. There is elevation the right diaphragm. A pneumothorax is not identified. IMPRESSION: 1. Right central line in good position. 2. No pneumothorax. 3. No other change. Electronically signed by: Avinash Tang MD (09/27/2019 9:25 PM) [facility]
[2019-09-27] MEDS ORDERED: INSULIN REGULAR 100 UNIT/ML 3ML VIAL. IV ONE (21:30)
[2019-09-27] MEDS ORDERED: NOREPINEPHRINE BITARTRATE 8 MG in IV DEXTROSE 5% 250 ML IV PRN (22:00)
[2019-09-27 22:40] VITALS: BP 105/45
== END 2019-09-27 22:55 | disposition short-term general hospital (02) ==
LOC: ER 14:39
DX: A41.9 Sepsis, unspecified organism (principal); I95.9 Hypotension, unspecified; N12 Tubulo-interstitial nephritis, not specified as acute or chronic; D53.9 Nutritional anemia, unspecified; D72.829 Elevated white blood cell count, unspecified; E11.65 Type 2 diabetes mellitus with hyperglycemia; N39.0 Urinary tract infection, site not specified; I11.0 Hypertensive heart disease with heart failure; I50.9 Heart failure, unspecified; M19.90 Unspecified osteoarthritis, unspecified site; J44.9 Chronic obstructive pulmonary disease, unspecified; F17.210 Nicotine dependence, cigarettes, uncomplicated; Z95.0 Presence of cardiac pacemaker
CPT/HCPCS: 36415; 36556; 51702; 71045; 71260; 74018; 74177; 80053; 81001; 82274; 82803; 82947; 83605; 83880; 84484; 85007; 85025; 86850; 86900; 86901; 87086; 93005; 96365; 96367; 96368; 96375; 99291; 99292; C9113; J1940; J2060; J2543; J3010; J3490; J7030